=== PATIENT | male | born 1930 | race Caucasian/White ===

== ENCOUNTER 2017-06-02 20:30 | Inpatient (IN) | payer MEDICARE, OTHER ==
[~2017-06-02] VITALS: Ht 180.3 cm; Wt 107.0 kg
[~2017-06-02 20:30] MED LIST: ALPR1TAB2 PO; AMLO10TA2 PO; AMLO5TAB2 PO; ASPI-630 PO; ATOR40TA PO; BACTOBAN; CALC-52 PO; CARV6.25 PO; CETI10TA22 PO; CHOL10003 PO; CIPR500T94 PO; DOCU100T5 PO; FINA5TAB PO; FISH1CAP PO; FURO-69 PO; GLUC1TAB69 PO; GLUC1TAB71 PO; LOSA100T6 PO; METH10CA PO; MISO100T4 PO; MISO200T PO; ONDA4TAB10 SL; POLY17PO5 PO; TAMS0.4C97 PO; VIT1CAPS11 PO; ZOLP10TA PO; oscal 500
[2017-06-02] MEDS ORDERED: IPRATRPIUM/ALBUTEROL 0.5/2.5MG 3 ML NEBU. NEB ONE (21:00)
[2017-06-02 21:55] LABS: BASO % 0 % (0-3); EOS % 0 % (0-3); HEMATOCRIT 37.3 % (39.0-53.0); HEMOGLOBIN 12.5 g/dL (13.0-17.5); LYMPH # 1.8 x10^3/uL (1.0-4.8); LYMPH % 11 % (24-48); MEAN CORPUSCULAR HEMOGLOBIN 30 pg (25-35); MEAN CORPUSCULAR HGB CONC 33 g/dL (31-37); MEAN CORPUSCULAR VOLUME 91 fL (79-100); MONO # 1.1 x10^3/uL (0.0-1.1); MONO % 6 % (0-9); NEUT # 14.1 x10^3uL (1.8-7.7); NEUT % 83 % (31-73); PLATELET COUNT 160 x10^3/uL (140-400); RED BLOOD COUNT 4.11 x10^6/uL (4.30-5.70); RED CELL DISTRIBUTION WIDTH 15.3 % (11.5-14.5); WHITE BLOOD COUNT 17.1 x10^3/uL (4.0-11.0)
--- NOTE | 2017-06-02 21:55 | EKG ---
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
[2017-06-02] MEDS ORDERED: AZITHROMYCIN 500 MG VIAL. IV ONE (22:11)
[2017-06-02] MEDS ORDERED: cefTRIAXone SODIUM 1 GM VIAL IV ONE (22:11)
[2017-06-02 22:14] LABS: ALBUMIN 3.2 g/dL (3.4-5.0); ALBUMIN/GLOBULIN RATIO 0.8 (1.0-1.7); CALCIUM 8.5 mg/dL (8.5-10.1); CREATININE 2.2 mg/dL (0.7-1.3); GFR 28.6; POTASSIUM 4.2 mmol/L (3.5-5.1); TOTAL BILIRUBIN 0.8 mg/dL (0.2-1.0); TOTAL PROTEIN 7.2 g/dL (6.4-8.2)
[2017-06-02] MEDS ORDERED: ALBUTEROL SULFATE 2.5 MG/3 ML NEBU. NEB ONE (22:30)
[2017-06-02] MEDS ORDERED: AZITHROMYCIN 500 MG in IV NORMAL SALINE 250ML 250 ML IV ONE (22:30)
[2017-06-02] MEDS ORDERED: ASPIRIN 81 MG TAB.CHEW PO ONE (22:30)
[2017-06-02] MEDS ORDERED: cefTRIAXone IV Push 1 GM VIAL. IVP ONE ×2 (22:30→23:00)
[2017-06-02 22:51] LABS: % BANDS 5 % (0-9); % LYMPHS 12 % (24-48); % MONOS 10 % (0-10); % SEGS 73 % (35-66)
[2017-06-02 22:52] LABS: PLT ESTIMATE ADEQUATE (ADEQUATE)
[2017-06-02] MEDS ORDERED: NITROGLYCERIN SUBLINGUAL 0.4 MG BOTTLE OF 25. SL PRN (23:00)
[2017-06-02] MEDS ORDERED: MORPHINE SULFATE 2 MG/ML DISP.SYRIN. IV PRN (23:00)
[2017-06-02] MEDS ORDERED: ACETAMINOPHEN 325 MG TABLET PO PRN (23:00)
[2017-06-02] MEDS ORDERED: ONDANSETRON PF 4 MG/2 ML VIAL. IV PRN (23:00)
[2017-06-03] VITALS (7 sets, daily range): BP systolic 116–147; BP diastolic 49–63
[2017-06-03] MEDS ORDERED: methylPREDNISolone SOD SUCC PF 125 MG/2 ML VIAL. IV ONE (02:30)
--- NOTE | 2017-06-03 02:36 | PHYS DOC ---
Past History Past Medical History: Anxiety, Asthma, CAD, Cancer, COPD, Depression, Hypertension, Renal Disease, TIA Past Surgical History: Colectomy Alcohol Use: None Drug Use: None Adult General Chief Complaint Chief Complaint: SHORTNESS OF BREATH HPI HPI Patient is a 86 year old male who presents with cough & shortness of breath. The patient reports 2 day history of cough productive of yellow green sputum associated with shortness of breath at rest & with exertion. Reports nasal congestion. He denies fevers/chills, sore throat, chest pain, nausea, vomiting , diarrhea, dysuria. He denies history of COPD/asthma although both are documented in chart. Denies recent hospital admission. He reports history of smoking, quit 30 years ago. PCP is Dr. Geronimo. Review of Systems Review of Systems Constitutional: Denies fever or chills Eyes: Denies change in visual acuity HENT: Denies nasal congestion or sore throat Respiratory: Reports cough & shortness of breath Cardiovascular: Denies chest pain or edema GI: Denies abdominal pain, nausea, vomiting, or diarrhea Musculoskeletal: Denies back pain or joint pain Integument: Denies rash or skin lesions Neurologic: Denies headache, focal weakness or sensory changes All other systems were reviewed and found to be within normal limits, except as documented in this note. Current Medications Current Medications Current Medications Medications (Trade) Dose Ordered Sig/Gerardo Start Time Stop Time Status Last Admin Dose Admin Albuterol/ Ipratropium (Duoneb) 3 ml 1X ONCE 06/02/17 21:00 06/02/17 21:04 DC 06/02/17 22:08 3 ML Azithromycin (Zithromax) 500 mg STK-MED ONCE 06/02/17 22:11 06/02/17 22:12 DC Ceftriaxone Sodium 1 gm/ Sodium Chloride 50 ml @ 100 mls/hr 1X ONCE 06/02/17 22:15 06/02/17 22:44 UNV Ceftriaxone Sodium (Rocephin) 1 gm STK-MED ONCE 06/02/17 22:11 06/02/17 22:12 DC Allergies Allergies Allergies Coded Allergies Type Severity Reaction Last Updated Verified codeine Allergy Intermediate 12/27/13 Yes Physical Exam Physical Exam Constitutional: obese, no acute distress, non-toxic appearance. HENT: Normocephalic, atraumatic, bilateral external ears normal, oropharynx moist, no tonsillar enlargement/exudate, nose normal. Eyes: conjunctiva normal, no discharge. Neck: supple, no stridor. Cardiovascular: RRR, no murmurs, no edema. Lungs & Thorax: expiratory wheezes bilaterally greater on the left, no retractions or accessory muscle use, no respiratory distress. Abdomen: soft, nontender, nondistended. Skin: Warm, dry, no erythema, no rash. Back: No tenderness. Extremities: No tenderness, no edema. no calf tenderness or swelling. Neurologic: Alert and oriented X 3, no focal deficits noted. Psychologic: Affect normal, judgement normal, mood normal. Current Patient Data Vital Signs Vital Signs Date Time Temp Pulse Resp B/P (MAP) Pulse Ox O2 Delivery O2 Flow Rate FiO2 06/03/17 01:00 Room Air 06/03/17 01:00 98.8 67 26 144/53 (83) 91 Lab Results Laboratory Tests Test 06/02/17 21:24 White Blood Count 17.1 x10^3/uL (4.0-11.0) H Red Blood Count 4.11 x10^6/uL (4.30-5.70) L Hemoglobin 12.5 g/dL (13.0-17.5) L Hematocrit 37.3 % (39.0-53.0) L Mean Corpuscular Volume 91 fL (79-100) Mean Corpuscular Hemoglobin 30 pg (25-35) Mean Corpuscular Hemoglobin Concent 33 g/dL (31-37) Red Cell Distribution Width 15.3 % (11.5-14.5) H Platelet Count 160 x10^3/uL (140-400) Neutrophils (%) (Auto) 83 % (31-73) H Lymphocytes (%) (Auto) 11 % (24-48) L Monocytes (%) (Auto) 6 % (0-9) Eosinophils (%) (Auto) 0 % (0-3) Basophils (%) (Auto) 0 % (0-3) Neutrophils # (Auto) 14.1 x10^3uL (1.8-7.7) H Lymphocytes # (Auto) 1.8 x10^3/uL (1.0-4.8) Monocytes # (Auto) 1.1 x10^3/uL (0.0-1.1) Eosinophils # (Auto) 0.0 x10^3/uL (0.0-0.7) Basophils # (Auto) 0.0 x10^3/uL (0.0-0.2) Segmented Neutrophils % 73 % (35-66) H Band Neutrophils % 5 % (0-9) Lymphocytes % 12 % (24-48) L Monocytes % 10 % (0-10) Platelet Estimate Adequate (ADEQUATE) Sodium Level 140 mmol/L (136-145) Potassium Level 4.2 mmol/L (3.5-5.1) Chloride Level 105 mmol/L (98-107) Carbon Dioxide Level 27 mmol/L (21-32) Anion Gap 8 (6-14) Blood Urea Nitrogen 31 mg/dL (8-26) H Creatinine 2.2 mg/dL (0.7-1.3) H Estimated GFR (Cockcroft-Gault) 28.6 BUN/Creatinine Ratio 14 (6-20) Glucose Level 141 mg/dL (70-99) H Calcium Level 8.5 mg/dL (8.5-10.1) Total Bilirubin 0.8 mg/dL (0.2-1.0) Aspartate Amino Transferase (AST) 19 U/L (15-37) Alanine Aminotransferase (ALT) 22 U/L (16-63) Alkaline Phosphatase 64 U/L (46-116) Troponin I Quantitative 0.107 ng/mL (0-0.055) H HJ-Nfg-V-Type Natriuretic Peptide 2214 pg/mL (0-449) H Total Protein 7.2 g/dL (6.4-8.2) Albumin 3.2 g/dL (3.4-5.0) L Albumin/Globulin Ratio 0.8 (1.0-1.7) L EKG EKG interpreted by me: normal sinus rhythm rate 73, RBBB, T waves inverted in V1- V3 without ST depression appears stable from previous EKG, normal intervals, no ectopy.[] Radiology/Procedures Radiology/Procedures CXR, 2 view: interpreted by me: right sided infiltrate, cardiomegaly, no pneumothorax.[] Course & Med Decision Making Course & Med Decision Making Pertinent Labs and Imaging studies reviewed. (See chart for details) The patient presents with cough & shortness of breath. Afebrile, desats to high 80s at times on room air but overall stable >90%. He was wheezing on arrival. Gave duoneb & albuterol treatments. He denied history of COPD or asthma, but as I am reviewing his chart after admission, he does have documented history, steroids not given earlier but will order now despite the fact that he was admitted several hours ago. He had CXR showing pulmonary infiltrate. Gave rocephin & azithromycin for community acquired pneumonia. Does not meet criteria for sepsis. EKG appears unchanged from previous, troponin & BNP elevated. Will give aspirin here & obtain repeat troponin. Recommend admission for ongoing respiratory management, cardiac workup. Patient agrees with plan of care. Discussed with Dr. Geronimo who agrees to admit to inpatient status. The patient is admitted in stable condition. [] Dragon Disclaimer Dragon Disclaimer This electronic medical record was generated, in whole or in part, using a voice recognition dictation system. Departure Departure: Impression: Primary Impression: Community acquired pneumonia Disposition: ADMITTED INPATIENT Admitting Physician: See Geronimo Condition: STABLE JOE RASHEED MD Jun 03, 2017 02:36
[2017-06-03 04:13] LABS: BASO % 0 % (0-3); EOS % 0 % (0-3); HEMATOCRIT 36.6 % (39.0-53.0); LYMPH # 1.5 x10^3/uL (1.0-4.8); LYMPH % 10 % (24-48); MEAN CORPUSCULAR HEMOGLOBIN 30 pg (25-35); MEAN CORPUSCULAR HGB CONC 33 g/dL (31-37); MEAN CORPUSCULAR VOLUME 92 fL (79-100); MONO # 0.6 x10^3/uL (0.0-1.1); MONO % 5 % (0-9); NEUT # 11.9 x10^3uL (1.8-7.7); NEUT % 85 % (31-73); PLATELET COUNT 144 x10^3/uL (140-400); RED CELL DISTRIBUTION WIDTH 15.5 % (11.5-14.5)
[2017-06-03 04:28] LABS: CALCIUM 8.3 mg/dL (8.5-10.1); GFR 31.9; POTASSIUM 3.9 mmol/L (3.5-5.1)
[2017-06-03] MEDS ORDERED: IPRATRPIUM/ALBUTEROL 0.5/2.5MG 3 ML NEBU. ONE (05:11)
[2017-06-03] MEDS: IPRATRPIUM/ALBUTEROL 0.5/2.5MG 3 ML NEBU. NEB SCH ×4 (05:55→21:27)
--- NOTE | 2017-06-03 07:52 | RAD ---
2 view CXR: Clinical indications: Cough and shortness of breath. History of hypertension. Comparison: July 27, 2016. Findings: Chronic peribronchial thickening is seen consistent with chronic bronchitis. There is an increase in peribronchial thickening within the left midlung zone since the previous study consistent with acute bronchitis. No new consolidative infiltrate is seen. No pleural effusion or pneumothorax is evident. Heart size mildly enlarged. The mediastinum and pulmonary vasculature are unremarkable. The osseous structures appear intact. Impression: Chronic bronchitis. Acute bronchitis of the left midlung zone. No new consolidative pneumonia. Mild cardiomegaly.
[2017-06-03] MEDS ORDERED: CARVEDILOL 6.25 MG TABLET PO SCH (09:00)
[2017-06-03] MEDS ORDERED: FUROSEMIDE 20 MG TABLET PO SCH (09:30)
[2017-06-03] MEDS ORDERED: LOSARTAN 50 MG TABLET. PO SCH (09:30)
[2017-06-03] MEDS ORDERED: ALPRAZolam 0.5 MG TABLET PO PRN (09:30)
[2017-06-03] MEDS: CHOLECALCIFEROL (VITAMIN D3) 1,000 UNIT TABLET PO SCH (09:35)
[2017-06-03] MEDS: ASPIRIN 81 MG TAB.CHEW PO SCH (09:35)
[2017-06-03] MEDS: DOXYCYCLINE HYCLATE 100 MG TABLET PO SCH ×2 (09:36→21:25)
[2017-06-03] MEDS ORDERED: amLODIPine BESYLATE 10 MG TABLET PO SCH (10:00)
--- NOTE | 2017-06-03 10:17 | PDOC2 ---
CONSULT Date of Admission DATE: 06/03/17 TIME: 09:45 Reason for Consult: elevated trop Problem List Problems Medical Problems: (1) Community acquired pneumonia Status: Acute History of Present Illness Mr Walter is an 86 year old male who presents to the hospital with several days of productive cough, wheezing, chills and general malaise. He reports exposure to a sick relative over [place]. He denies chest discomfort, dyspnea or congestive symptoms. He denies palpitations. He does report some lightheadedness on standing. He reports his functional capacity at 10 minutes on the treadmill at least daily before hip pain. He denies any recent change in this capacity. He reports his biggest complaint at this time is constipation. Past Medical History hypertension, CAD s/p PCI/stent in [id number] at . Colon cancer diagnosed 2009, hyperlipidemia, anxiety, erectile dysfunction, obesity, COPD, near-syncope , depression, hypogonadism, BPH, asthma, secondary hyperparathyroidism, proteinuria, arteriolar nephrosclerosis, cardiomyopathy, obstructive sleep apnea , diplopia, type 2 diabetes, testosterone deficiency, cardiomegaly, TIA, chronic kidney disease stage III follows with Dr. Matthew Past Surgical History hand surgery, cataract surgery, hemorrhoidectomy, septoplasty, appendectomy, bowel resection, sigmoidectomy Family History non contributory due to age Social History Remote tobaccoism, quit 30 yrs, no significant ETOH, no illicit drugs Current Medications Current Medications Albuterol/ Ipratropium (Duoneb) 3 ml 1X ONCE NEB Last administered on 22:08; Start 06/02/17 at 21:00; Stop 06/02/17 at 21:04; Status DC Ceftriaxone Sodium 1 gm/ Sodium Chloride 50 ml @ 100 mls/hr 1X ONCE IV ; Start 06/02/17 at 22:15; Stop 06/02/17 at 22:44; Status UNV Azithromycin 500 mg/Sodium Chloride 250 ml @ 250 mls/hr 1X ONCE IV Last administered on 06/02/17 22:28; Start 06/02/17 at 22:30; Stop 06/02/17 at 23 :29; Status DC Azithromycin (Zithromax) 500 mg STK-MED ONCE IV ; Start 06/02/17 at 22:11; Stop 06/02/17 at 22:12; Status DC Ceftriaxone Sodium (Rocephin) 1 gm STK-MED ONCE IV ; Start 06/02/17 at 22:11; Stop 06/02/17 at 22:12; Status DC Ceftriaxone Sodium (Rocephin) 1 gm 1X ONCE IVP Last administered on 22:30; Start 06/02/17 at 22:30; Stop 06/02/17 at 22:31; Status DC Albuterol Sulfate (Ventolin) 5 mg 1X ONCE NEB Last administered on 06/02/17 22:28; Start 06/02/17 at 22:30; Stop 06/02/17 at 22:31; Status DC Aspirin (Children'S Aspirin) 324 mg 1X ONCE PO Last administered on 22:35; Start 06/02/17 at 22:30; Stop 06/02/17 at 22:31; Status DC Ceftriaxone Sodium (Rocephin) 1 gm 1X ONCE IVP ; Start 06/02/17 at 23:00; Stop 06/02/17 at 23:01; Status DC Ondansetron HCl (Zofran) 4 mg PRN Q4HRS PRN IV NAUSEA/VOMITING; Start at 23:00; Stop 06/03/17 at 22:59 Morphine Sulfate (Morphine 2mg Syringe) 2 mg PRN Q2HR PRN IV PAIN; Start 06/02 at 23:00; Stop 06/03/17 at 22:59 Acetaminophen (Tylenol) 650 mg PRN Q4HRS PRN PO FEVER; Start 06/02/17 at 23:00 ; Stop 06/03/17 at 22:59 Nitroglycerin (Nitrostat) 0.4 mg PRN Q5MIN PRN SL CHEST PAIN; Start 06/02/17 at 23:00; Stop 06/03/17 at 22:59 Albuterol/ Ipratropium (Duoneb) 3 ml RTQID NEB Last administered on 06/03/17 05:55; Start 06/03/17 at 08:00; Stop 06/04/17 at 07:59 Methylprednisolone Sodium Succinate (SOLU-Medrol 125MG VIAL) 125 mg 1X ONCE IV Last administered on 06/03/17 02:45; Start 06/03/17 at 02:30; Stop at 02:32; Status DC Albuterol/ Ipratropium (Duoneb) 3 ml STK-MED ONCE .ROUTE ; Start 06/03/17 at 05 :11; Stop 06/03/17 at 05:12; Status DC Amlodipine Besylate (Norvasc) 10 mg BIDWMEALS PO ; Start 06/03/17 at 17:00; Status UNV Aspirin (Children'S Aspirin) 81 mg DAILY08 PO Last administered on 06/03/17 09:35; Start 06/03/17 at 09:15 Carvedilol (Coreg) 6.25 mg BID PO ; Start 06/03/17 at 09:00 Cetirizine HCl (ZyrTEC) 10 mg BID PO ; Start 06/03/17 at 09:00; Status UNV Vitamin D (Vitamin D3) 2,000 unit DAILY PO Last administered on 06/03/17 09: 35; Start 06/03/17 at 09:00 Furosemide (Lasix) 20 mg DAILY PO ; Start 06/03/17 at 09:30 Misoprostol (Cytotec) 100 mcg TID PO ; Start 06/03/17 at 09:30 Ondansetron HCl (Zofran Odt) 4 mg Q8HRS PO ; Start 06/03/17 at 14:00 Alprazolam (Xanax) 1 mg PRN TID PRN PO ANXIETY / AGITATION; Start 06/03/17 at 09:30 Atorvastatin Calcium (Lipitor) 40 mg QHS PO ; Start 06/03/17 at 21:00 Losartan Potassium (Cozaar) 100 mg DAILY PO ; Start 06/03/17 at 09:30 Multivitamins/ Minerals (I-Jose F) 1 tab DAILYWLUN PO ; Start 06/04/17 at 12:00 Ceftriaxone Sodium 1 gm/ Sodium Chloride 50 ml @ 100 mls/hr Q24H IV ; Start at 09:00 Doxycycline Hyclate (Vibra-Tab) 100 mg BID PO Last administered on 06/03/17 09:36; Start 06/03/17 at 09:15 Active Scripts Active Zofran Odt (Ondansetron) 4 Mg Tab.rapdis 1 Tab SL Q8HRS Reported Losartan Potassium 100 Mg Tablet 100 Mg PO DAILY Amlodipine Besylate 10 Mg Tablet 10 Mg PO BIDWMEALS Osteo Bi-Flex Caplet (Glucosamine Hcl/Chondr Elizabeth A Na) 1 Each Tablet 1 Each PO BIDWMEALS Vitamin D3 (Cholecalciferol (Vitamin D3)) 1,000 Unit Tablet 2,000 Unit PO DAILY Misoprostol 100 Mcg Tablet 100 Mcg PO TID Coreg (Carvedilol) 6.25 Mg Tablet 6.25 Mg PO BID Lasix (Furosemide) 20 Mg Tablet 20 Mg PO DAILY Zyrtec (Cetirizine Hcl) 10 Mg Tablet 10 Mg PO BID Xanax (Alprazolam) 1 Mg Tablet 1 Mg PO TID PRN Ocuvite Softgel (Vit C/Vit E/Lutein/Min/[place]-3) 1 Each Capsule 1 Each PO DAILYWLUN Fish Oil 1,200 Mg Fish Oil (Fish Oil/Dha/Epa) 1 Each Capsule 1 Each PO BIDWMEALS Lipitor (Atorvastatin Calcium) 40 Mg Tablet 40 Mg PO QHS Aspirin 81 Mg Tab.chew 81 Mg PO DAILY08 Allergies: Coded Allergies: codeine (Verified Allergy, Intermediate, 12/27/13) "Makes me feel like I am falling" Review of System 14 pt ROS as per HPI, below or neg General: YES: Chills, Malaise HEENT: YES: Nasal congestion Respiratory: YES: Cough, Sputum Changes, Wheezing Cardiovascular: yes: Lt Headedness Gastrointestinal: YES: Constipation Musculoskeletal: YES: Joint Pain General: Alert, Oriented X3, Cooperative, No acute distress HEENT: Atraumatic, EOMI Lungs: Clear to auscultation, Normal air movement Heart: Regular rate, Normal S1, Normal S2, Other (no significant murmurs, no clicks or rubs, no gallops) Abdomen: Normal bowel sounds, Soft, Other (obese, non tender) Extremities: No cyanosis, No edema, Normal pulses Skin: No rashes, No breakdown Neuro: Normal speech, Strength at 5/5 X4 ext, Cranial nerves 3-12 NL Psych/Mental Status: Mental status NL, Mood NL VITALS Vital Signs Date Time Temp Pulse Resp B/P (MAP) Pulse Ox O2 Delivery O2 Flow Rate FiO2 06/03/17 06:29 98.7 06/03/17 05:20 94 Room Air 06/03/17 05:17 72 20 147/49 (81) Labs Laboratory Tests Test 06/02/17 21:24 06/03/17 04:00 06/03/17 05:52 White Blood Count 17.1 x10^3/uL (4.0-11.0) 14.0 x10^3/uL (4.0-11.0) Red Blood Count 4.11 x10^6/uL (4.30-5.70) 4.00 x10^6/uL (4.30-5.70) Hemoglobin 12.5 g/dL (13.0-17.5) 12.0 g/dL (13.0-17.5) Hematocrit 37.3 % (39.0-53.0) 36.6 % (39.0-53.0) Mean Corpuscular Volume 91 fL (79-100) 92 fL (79-100) Mean Corpuscular Hemoglobin 30 pg (25-35) 30 pg (25-35) Mean Corpuscular Hemoglobin Concent 33 g/dL (31-37) 33 g/dL (31-37) Red Cell Distribution Width 15.3 % (11.5-14.5) 15.5 % (11.5-14.5) Platelet Count 160 x10^3/uL (140-400) 144 x10^3/uL (140-400) Neutrophils (%) (Auto) 83 % (31-73) 85 % (31-73) Lymphocytes (%) (Auto) 11 % (24-48) 10 % (24-48) Monocytes (%) (Auto) 6 % (0-9) 5 % (0-9) Eosinophils (%) (Auto) 0 % (0-3) 0 % (0-3) Basophils (%) (Auto) 0 % (0-3) 0 % (0-3) Neutrophils # (Auto) 14.1 x10^3uL (1.8-7.7) 11.9 x10^3uL (1.8-7.7) Lymphocytes # (Auto) 1.8 x10^3/uL (1.0-4.8) 1.5 x10^3/uL (1.0-4.8) Monocytes # (Auto) 1.1 x10^3/uL (0.0-1.1) 0.6 x10^3/uL (0.0-1.1) Eosinophils # (Auto) 0.0 x10^3/uL (0.0-0.7) 0.0 x10^3/uL (0.0-0.7) Basophils # (Auto) 0.0 x10^3/uL (0.0-0.2) 0.0 x10^3/uL (0.0-0.2) Segmented Neutrophils % 73 % (35-66) Band Neutrophils % 5 % (0-9) Lymphocytes % 12 % (24-48) Monocytes % 10 % (0-10) Platelet Estimate Adequate (ADEQUATE) Sodium Level 140 mmol/L (136-145) 139 mmol/L (136-145) Potassium Level 4.2 mmol/L (3.5-5.1) 3.9 mmol/L (3.5-5.1) Chloride Level 105 mmol/L (98-107) 106 mmol/L (98-107) Carbon Dioxide Level 27 mmol/L (21-32) 25 mmol/L (21-32) Anion Gap 8 (6-14) 8 (6-14) Blood Urea Nitrogen 31 mg/dL (8-26) 32 mg/dL (8-26) Creatinine 2.2 mg/dL (0.7-1.3) 2.0 mg/dL (0.7-1.3) Estimated GFR (Cockcroft-Gault) 28.6 31.9 BUN/Creatinine Ratio 14 (6-20) Glucose Level 141 mg/dL (70-99) 140 mg/dL (70-99) Calcium Level 8.5 mg/dL (8.5-10.1) 8.3 mg/dL (8.5-10.1) Total Bilirubin 0.8 mg/dL (0.2-1.0) Aspartate Amino Transf (AST/SGOT) 19 U/L (15-37) Alanine Aminotransferase (ALT/SGPT) 22 U/L (16-63) Alkaline Phosphatase 64 U/L (46-116) Troponin I Quantitative 0.107 ng/mL (0-0.055) 0.115 ng/mL (0-0.055) RK-Uua-Q-Type Natriuretic Peptide 2214 pg/mL (0-449) Total Protein 7.2 g/dL (6.4-8.2) Albumin 3.2 g/dL (3.4-5.0) Albumin/Globulin Ratio 0.8 (1.0-1.7) Lactic Acid Level 1.4 mmol/L (0.4-2.0) Images CXR - Impression: Chronic bronchitis. Acute bronchitis of the left midlung zone. No new consolidative pneumonia. Mild cardiomegaly. EKG - Sinus rhythm, 1st degree AVB, RBBB, LAFB, non specific abn. Assessment/Plan 1. elevated troponin c/w NSTEMI, likely demand related 2. CAD with prior PCI/Stent 3. hypertension - resume home meds at reduced doses for now and titrate up as needed. 4. CKD - holding lasix as he normally takes PRN and I suspect he is a little on the dry side. 5. hyperlipidemia - check lipids. 6. diabetes mellitus - per PCP Will resume home medications. Change Coreg to metoprolol for now due to frequent wheezing. Check echo for LV function and request records from [facility]. Continue aspirin, statin, beta jaz and suggest Ischemic evaluation when acute bronchitis resolved. Problems: DARRICK ROSAS ULTRASONOGRAPHER Jun 03, 2017 10:17
[2017-06-03] MEDS ORDERED: BISACODYL 10 MG SUPP.RECT PR ONE (10:30)
[2017-06-03] MEDS: miSOPROStol 100 MCG TABLET PO SCH ×3 (10:44→21:25)
[2017-06-03] MEDS: METOPROLOL TART IMMED RELEASE 25 MG TABLET PO SCH ×2 (11:11→21:26)
[2017-06-03] MEDS: CETIRIZINE HCL 10 MG TABLET PO SCH ×2 (11:19→21:25)
[2017-06-03] MEDS: ONDANSETRON ODT 4 MG TAB.RAPDIS PO SCH ×2 (15:10→21:25)
--- NOTE | 2017-06-03 16:17 | CARD ---
MR#: [id number] Date of Study: 06/03/2017 Ordering Physician: DARRICK ROSAS, Referring Physician: WILLIAM SEVERINO, Tech: Floresita Yeboah [facility] APPROVED REPORT EXAM: Two-dimensional and M-mode echocardiogram with Doppler and color Doppler. Other Information Quality : Average INDICATION Dyspnea 2D DIMENSIONS Left Atrium(2D)4.7 (1.6-4.0cm)IVSd1.5 (0.7-1.1cm) Aortic Root(2D)3.0 (2.0-3.7cm)LVDd5.3 (3.9-5.9cm) LVOT Diameter2.0 (1.8-2.4cm)PWd1.4 (0.7-1.1cm) LVDs3.5 (2.5-4.0cm)FS (%) 33.5 % SV82.7 mlLVEF(%)61.8 (>50%) Aortic Valve AoV Peak Waldemar.203.5cm/sAoV VTI46.8cm AO Peak GR.16.6mmHgLVOT Peak Waldemar.146.3cm/s LVOT VTI 33.63cmAO Mean GR.9mmHg QUENTIN (VMAX)2.65bu5IDT (VTI)2.30cm2 Mitral Valve MV E Hebjoogg475.8cm/sMV DECEL PWOJ419dm MV A Guuzhnji516.8cm/sE/A Ratio0.9 Tricuspid Valve TR P. Yjaeyrvt928xy/sRAP MOFSANTS6xzHo TR Peak Gr.40xaShBEVE03naDt LEFT VENTRICLE The left ventricle is normal size. There is mild concentric left ventricular hypertrophy. Left ventri loco systolic function is normal. The Ejection Fraction is 55-60%. There is normal LV segmental wall m otion. Transmitral Doppler flow pattern is normal for age. Transmitral Doppler flow pattern is Grade I-abnormal relaxation pattern. RIGHT VENTRICLE The right ventricle is normal size. The right ventricular systolic function is normal. ATRIA The left atrium is mildly dilated. The right atrium size is normal. Mobile interatrial septum noted. AORTIC VALVE The aortic valve is calcified but opens well. Doppler and Color Flow revealed no significant aortic r egurgitation. There is no significant aortic valvular stenosis. MITRAL VALVE The mitral valve is mildly thickened. There is no evidence of mitral valve prolapse. There is no mitr al valve stenosis. Doppler and Color-flow revealed mild mitral regurgitation. TRICUSPID VALVE The tricuspid valve is normal in structure. Doppler and Color Flow revealed mild tricuspid regurgitat ion. The PA pressure was estimated at 21 mmHg. There is no tricuspid valve prolapse or vegetation. Th ere is no tricuspid valve stenosis. PULMONIC VALVE The pulmonic valve is borderline thickened. Doppler and Color Flow revealed trace to mild pulmonic va lvular regurgitation. There is no pulmonic valvular stenosis. GREAT VESSELS The aortic root is normal in size. The ascending aorta is normal in size. The IVC is normal in size a nd collapses >50% with inspiration. PERICARDIAL EFFUSION There is no pleural effusion. There is no evidence of significant pericardial effusion. Critical Notification Critical Value: No <Conclusion> The left ventricle is normal size. Left ventricle systolic function is normal. The Ejection Fraction is 55-60%. There is mild concentric left ventricular hypertrophy. There is no significant aortic valvular stenosis. Doppler and Color Flow revealed no significant aortic regurgitation. Doppler and Color-flow revealed mild mitral regurgitation. Doppler and Color Flow revealed mild tricuspid regurgitation. The PA pressure was estimated at 21 mmHg. Signed by : Dereje Eduardo MD Electronically Approved : 06/03/2017 16:17:23
[2017-06-03] MEDS: ATORVASTATIN CALCIUM 20 MG TABLET PO SCH (21:25)
--- NOTE | 2017-06-04 00:05 | HP ---
ADMIT DATE: 06/03/2017 HISTORY OF PRESENT ILLNESS: An 86-year-old male came in through the Emergency Room. The patient was having problems with increased shortness of breath for 3 days, episode of bringing up yellow-green phlegm with exertion. The patient reports severe nasal congestion. He denies ____ nausea, vomiting; however, because of increasing shortness of breath, the patient was admitted to the hospital for further evaluation and treatment thereof. PAST MEDICAL HISTORY: Includes that of HEENT disorders in terms of deaf in left ear. He has had TIAs, coronary stent placement, hypercholesterolemia, respiratory disorders, COPD, sleep apnea on CPAP, abdominal pain, appendectomy, colon resection, obesity, reproductive disorders like impotence, low testosterone levels, benign prostatic hyperplasia, urinary urgency, degenerative arthritis. The patient has had some problems with depression. Otherwise, he has also had some skin cancer. The patient's, otherwise, immunizations are up to date. PAST SURGICAL HISTORY: Include bilateral blepharoplasty. ALLERGIES: The patient has an allergy to CODEINE. MEDICATIONS: Xanax 1 mg t.i.d., Norvasc 10 mg b.i.d., aspirin 81, Lipitor 40, carvedilol 6.25 b.i.d., Zyrtec 10 mg b.i.d., furosemide 20 mg daily, glucosamine 1 tablet b.i.d., losartan 100 mg daily, misoprostol 100 mcg daily, Zofran ODT, vitamin C, E, and lutein. FAMILY HISTORY: Noncontributory. SOCIAL HISTORY: The patient denies smoking, alcohol or drug use. REVIEW OF SYSTEMS: The patient denies any headaches, visual changes, blurred vision, double vision. Denies any melena, hematochezia, hematemesis. Neurologically intact. PHYSICAL EXAMINATION: GENERAL: This is a pleasant white male in mild respiratory distress. VITAL SIGNS: The patient in turn has blood pressure 140/60, respiratory rate 18, pulse 102, temperature as high as 100.5, oxygen saturation 91% on room air. HEENT: The patient's head was atraumatic, normocephalic. Eyes: PERRLA without jaundice. Mouth and throat were normal. NECK: Supple, without JVD, carotid bruits or thyromegaly. LUNGS: The patient's lungs were diminished throughout, poor movement of air, some expiratory wheezes. CARDIOVASCULAR: Regular sinus rhythm, S1, S2, without murmur, rub, thrill, or extra heart sounds. ABDOMEN: Soft, nontender, no rebound or guarding. Positive bowel sounds. No hepatosplenomegaly was noted. EXTREMITIES: No clubbing, cyanosis, or edema. NEUROLOGIC: Intact. LABORATORY DATA: White count was over 17,000. The patient has fairly normal differential. The patient's creatinine elevated at 2. BNP elevated to 2200. Lactic acid was normal, although he did have elevated troponin of 0.068. Cardiology was consulted on this issue at hand. The patient's, otherwise, chest x-ray showed indications of bronchitis. At level of his fever, it was felt that it was more than just bronchitis. IMPRESSION: The patient in turn has acute exacerbation of chronic obstructive pulmonary disease, acute bronchitis, first degree AV block, right bundle branch block, elevated troponin levels, chronic kidney disease stage III. PLAN: The patient will be admitted for further evaluation and treatment. Make further assessment on him as indicated along with Cardiology evaluating the troponin as well. WILLIAM SEVERINO MD DR: JORGITO/dalia JOB#: [id number] / [id number]
[2017-06-04 03:00] VITALS: BP 138/63
[2017-06-04] MEDS: IPRATRPIUM/ALBUTEROL 0.5/2.5MG 3 ML NEBU. NEB SCH ×4 (06:00→20:15)
[2017-06-04] MEDS: ONDANSETRON ODT 4 MG TAB.RAPDIS PO SCH ×3 (06:30→20:28)
[2017-06-04 07:51] LABS: BASO % 0 % (0-3); EOS % 0 % (0-3); HEMATOCRIT 37.2 % (39.0-53.0); HEMOGLOBIN 12.5 g/dL (13.0-17.5); LYMPH # 1.5 x10^3/uL (1.0-4.8); LYMPH % 8 % (24-48); MEAN CORPUSCULAR HEMOGLOBIN 31 pg (25-35); MEAN CORPUSCULAR HGB CONC 34 g/dL (31-37); MEAN CORPUSCULAR VOLUME 91 fL (79-100); MONO # 0.8 x10^3/uL (0.0-1.1); MONO % 5 % (0-9); NEUT # 15.7 x10^3uL (1.8-7.7); NEUT % 87 % (31-73); PLATELET COUNT 175 x10^3/uL (140-400); RED CELL DISTRIBUTION WIDTH 15.3 % (11.5-14.5); WHITE BLOOD COUNT 18.1 x10^3/uL (4.0-11.0)
[2017-06-04 08:02] LABS: CALCIUM 8.4 mg/dL (8.5-10.1); CREATININE 2.1 mg/dL (0.7-1.3); GFR 30.2; POTASSIUM 4.4 mmol/L (3.5-5.1)
[2017-06-04] MEDS: LACTOBACILLUS RHAMNOSUS GG 1 CAPSULE. PO SCH ×2 (08:11→20:26)
[2017-06-04] MEDS: ASPIRIN 81 MG TAB.CHEW PO SCH (08:11)
[2017-06-04] MEDS: CHOLECALCIFEROL (VITAMIN D3) 1,000 UNIT TABLET PO SCH (08:11)
[2017-06-04] MEDS: amLODIPine BESYLATE 10 MG TABLET PO SCH (08:13)
[2017-06-04] MEDS: METOPROLOL TART IMMED RELEASE 25 MG TABLET PO SCH ×2 (08:14→20:29)
[2017-06-04] MEDS: LOSARTAN 50 MG TABLET. PO SCH (08:17)
[2017-06-04] MEDS: miSOPROStol 100 MCG TABLET PO SCH ×3 (08:17→20:27)
[2017-06-04] MEDS: DOXYCYCLINE HYCLATE 100 MG TABLET PO SCH ×2 (08:17→20:27)
[2017-06-04] MEDS: CETIRIZINE HCL 10 MG TABLET PO SCH ×2 (08:18→20:27)
[2017-06-04 09:17] VITALS: BP 122/59
--- NOTE | 2017-06-04 09:34 | PDOC ---
DARRICK ROSAS AGRISCIENCE TECHNOLOGY INSTRUCTOR 06/04/17 0934: PROGRESS NOTES Diagnosis Problem Problems Medical Problems: (1) Community acquired pneumonia Status: Acute Assessment Problems Medical Problems: (1) Community acquired pneumonia Status: Acute 1. elevated troponin c/w NSTEMI, likely demand related - trop peak at 0.115. LVEF and wall motion normal by echo. Continue aspirin, beta jaz, statin therapy. Recommend outpatient MPI once acute respiratory issues resolved. 2. COPD exacerbation/acute bronchitis - mgmt per PCP 3. CAD with prior PCI/Stent 2010 - records requested from [facility] 4. hypertension - anti hypertensives adjusted yesterday, blood pressure controlled. 5. CKD - holding lasix as he normally takes PRN and I suspect he is a little on the dry side. Cr holding stable. 6. hyperlipidemia - lipids pending, continue statin therapy. 7. diabetes mellitus - per PCP Problems: Subjective feeling better today, no chest pain, denies dyspnea, no palpitations Objective Echo The left ventricle is normal size. Left ventricle systolic function is normal. The Ejection Fraction is 55-60%. There is mild concentric left ventricular hypertrophy. There is no significant aortic valvular stenosis. Doppler and Color Flow revealed no significant aortic regurgitation. Doppler and Color-flow revealed mild mitral regurgitation. Doppler and Color Flow revealed mild tricuspid regurgitation. The PA pressure was estimated at 21 mmHg. Vital Signs Date Time Temp Pulse Resp B/P (MAP) Pulse Ox O2 Delivery O2 Flow Rate FiO2 06/04/17 09:17 59 122/59 (80) 06/04/17 05:30 96 Room Air 06/04/17 03:00 97.9 18 Intake and Output 06/04/17 07:00 Intake Total 2550 ml Balance 2550 ml Intake Oral 2400 ml IV Total 150 ml # Voids 5 # Bowel Movements 1 Abdomen: Normal bowel sounds, Soft, No tenderness, Other (obese) Heart: Regular rate, Normal S1, Normal S2, Other (no gallops, clicks or rubs) Extremities: No cyanosis, Normal pulses General: Alert, Oriented X3, Cooperative, No acute distress Lungs: Other (scattered wheezing bilaterally) Neuro: Normal speech, Strength at 5/5 X4 ext Psych/Mental Status: Mental status NL, Mood NL Review of Relevant I have reviewed the following items dina (where applicable) has been applied. Labs Laboratory Tests Test 06/02/17 21:24 06/03/17 01:30 06/03/17 04:00 06/03/17 05:52 White Blood Count 17.1 x10^3/uL (4.0-11.0) 14.0 x10^3/uL (4.0-11.0) Red Blood Count 4.11 x10^6/uL (4.30-5.70) 4.00 x10^6/uL (4.30-5.70) Hemoglobin 12.5 g/dL (13.0-17.5) 12.0 g/dL (13.0-17.5) Hematocrit 37.3 % (39.0-53.0) 36.6 % (39.0-53.0) Mean Corpuscular Volume 91 fL (79-100) 92 fL (79-100) Mean Corpuscular Hemoglobin 30 pg (25-35) 30 pg (25-35) Mean Corpuscular Hemoglobin Concent 33 g/dL (31-37) 33 g/dL (31-37) Red Cell Distribution Width 15.3 % (11.5-14.5) 15.5 % (11.5-14.5) Platelet Count 160 x10^3/uL (140-400) 144 x10^3/uL (140-400) Neutrophils (%) (Auto) 83 % (31-73) 85 % (31-73) Lymphocytes (%) (Auto) 11 % (24-48) 10 % (24-48) Monocytes (%) (Auto) 6 % (0-9) 5 % (0-9) Eosinophils (%) (Auto) 0 % (0-3) 0 % (0-3) Basophils (%) (Auto) 0 % (0-3) 0 % (0-3) Neutrophils # (Auto) 14.1 x10^3uL (1.8-7.7) 11.9 x10^3uL (1.8-7.7) Lymphocytes # (Auto) 1.8 x10^3/uL (1.0-4.8) 1.5 x10^3/uL (1.0-4.8) Monocytes # (Auto) 1.1 x10^3/uL (0.0-1.1) 0.6 x10^3/uL (0.0-1.1) Eosinophils # (Auto) 0.0 x10^3/uL (0.0-0.7) 0.0 x10^3/uL (0.0-0.7) Basophils # (Auto) 0.0 x10^3/uL (0.0-0.2) 0.0 x10^3/uL (0.0-0.2) Segmented Neutrophils % 73 % (35-66) Band Neutrophils % 5 % (0-9) Lymphocytes % 12 % (24-48) Monocytes % 10 % (0-10) Platelet Estimate Adequate (ADEQUATE) Sodium Level 140 mmol/L (136-145) 139 mmol/L (136-145) Potassium Level 4.2 mmol/L (3.5-5.1) 3.9 mmol/L (3.5-5.1) Chloride Level 105 mmol/L (98-107) 106 mmol/L (98-107) Carbon Dioxide Level 27 mmol/L (21-32) 25 mmol/L (21-32) Anion Gap 8 (6-14) 8 (6-14) Blood Urea Nitrogen 31 mg/dL (8-26) 32 mg/dL (8-26) Creatinine 2.2 mg/dL (0.7-1.3) 2.0 mg/dL (0.7-1.3) Estimated GFR (Cockcroft-Gault) 28.6 31.9 BUN/Creatinine Ratio 14 (6-20) Glucose Level 141 mg/dL (70-99) 140 mg/dL (70-99) Calcium Level 8.5 mg/dL (8.5-10.1) 8.3 mg/dL (8.5-10.1) Total Bilirubin 0.8 mg/dL (0.2-1.0) Aspartate Amino Transf (AST/SGOT) 19 U/L (15-37) Alanine Aminotransferase (ALT/SGPT) 22 U/L (16-63) Alkaline Phosphatase 64 U/L (46-116) Troponin I Quantitative 0.107 ng/mL (0-0.055) 0.115 ng/mL (0-0.055) ZX-Jvp-C-Type Natriuretic Peptide 2214 pg/mL (0-449) Total Protein 7.2 g/dL (6.4-8.2) Albumin 3.2 g/dL (3.4-5.0) Albumin/Globulin Ratio 0.8 (1.0-1.7) Nasal Screen MRSA (PCR) Negative (Negative) Lactic Acid Level 1.4 mmol/L (0.4-2.0) Test 06/03/17 10:20 06/04/17 07:43 Troponin I Quantitative 0.068 ng/mL (0-0.055) White Blood Count 18.1 x10^3/uL (4.0-11.0) Red Blood Count 4.10 x10^6/uL (4.30-5.70) Hemoglobin 12.5 g/dL (13.0-17.5) Hematocrit 37.2 % (39.0-53.0) Mean Corpuscular Volume 91 fL (79-100) Mean Corpuscular Hemoglobin 31 pg (25-35) Mean Corpuscular Hemoglobin Concent 34 g/dL (31-37) Red Cell Distribution Width 15.3 % (11.5-14.5) Platelet Count 175 x10^3/uL (140-400) Neutrophils (%) (Auto) 87 % (31-73) Lymphocytes (%) (Auto) 8 % (24-48) Monocytes (%) (Auto) 5 % (0-9) Eosinophils (%) (Auto) 0 % (0-3) Basophils (%) (Auto) 0 % (0-3) Neutrophils # (Auto) 15.7 x10^3uL (1.8-7.7) Lymphocytes # (Auto) 1.5 x10^3/uL (1.0-4.8) Monocytes # (Auto) 0.8 x10^3/uL (0.0-1.1) Eosinophils # (Auto) 0.0 x10^3/uL (0.0-0.7) Basophils # (Auto) 0.0 x10^3/uL (0.0-0.2) Sodium Level 137 mmol/L (136-145) Potassium Level 4.4 mmol/L (3.5-5.1) Chloride Level 103 mmol/L (98-107) Carbon Dioxide Level 25 mmol/L (21-32) Anion Gap 9 (6-14) Blood Urea Nitrogen 48 mg/dL (8-26) Creatinine 2.1 mg/dL (0.7-1.3) Estimated GFR (Cockcroft-Gault) 30.2 Glucose Level 160 mg/dL (70-99) Calcium Level 8.4 mg/dL (8.5-10.1) Microbiology 06/03/17 Blood Culture - Preliminary, Resulted NO GROWTH AFTER 1 DAY Medications Current Medications Albuterol/ Ipratropium (Duoneb) 3 ml 1X ONCE NEB Last administered on 22:08; Start 06/02/17 at 21:00; Stop 06/02/17 at 21:04; Status DC Ceftriaxone Sodium 1 gm/ Sodium Chloride 50 ml @ 100 mls/hr 1X ONCE IV ; Start 06/02/17 at 22:15; Stop 06/02/17 at 22:44; Status UNV Azithromycin 500 mg/Sodium Chloride 250 ml @ 250 mls/hr 1X ONCE IV Last administered on 06/02/17 22:28; Start 06/02/17 at 22:30; Stop 06/02/17 at 23 :29; Status DC Azithromycin (Zithromax) 500 mg STK-MED ONCE IV ; Start 06/02/17 at 22:11; Stop 06/02/17 at 22:12; Status DC Ceftriaxone Sodium (Rocephin) 1 gm STK-MED ONCE IV ; Start 06/02/17 at 22:11; Stop 06/02/17 at 22:12; Status DC Ceftriaxone Sodium (Rocephin) 1 gm 1X ONCE IVP Last administered on 22:30; Start 06/02/17 at 22:30; Stop 06/02/17 at 22:31; Status DC Albuterol Sulfate (Ventolin) 5 mg 1X ONCE NEB Last administered on 06/02/17 22:28; Start 06/02/17 at 22:30; Stop 06/02/17 at 22:31; Status DC Aspirin (Children'S Aspirin) 324 mg 1X ONCE PO Last administered on 22:35; Start 06/02/17 at 22:30; Stop 06/02/17 at 22:31; Status DC Ceftriaxone Sodium (Rocephin) 1 gm 1X ONCE IVP ; Start 06/02/17 at 23:00; Stop 06/02/17 at 23:01; Status DC Ondansetron HCl (Zofran) 4 mg PRN Q4HRS PRN IV NAUSEA/VOMITING; Start at 23:00; Stop 06/03/17 at 22:59; Status DC Morphine Sulfate (Morphine 2mg Syringe) 2 mg PRN Q2HR PRN IV PAIN; Start 06/02 at 23:00; Stop 06/03/17 at 22:59; Status DC Acetaminophen (Tylenol) 650 mg PRN Q4HRS PRN PO FEVER; Start 06/02/17 at 23:00 ; Stop 06/03/17 at 22:59; Status DC Nitroglycerin (Nitrostat) 0.4 mg PRN Q5MIN PRN SL CHEST PAIN; Start 06/02/17 at 23:00; Stop 06/03/17 at 22:59; Status DC Albuterol/ Ipratropium (Duoneb) 3 ml RTQID NEB Last administered on 06/04/17 06:00; Start 06/03/17 at 08:00; Stop 06/04/17 at 07:59; Status DC Methylprednisolone Sodium Succinate (SOLU-Medrol 125MG VIAL) 125 mg 1X ONCE IV Last administered on 06/03/17 02:45; Start 06/03/17 at 02:30; Stop at 02:32; Status DC Albuterol/ Ipratropium (Duoneb) 3 ml STK-MED ONCE .ROUTE ; Start 06/03/17 at 05 :11; Stop 06/03/17 at 05:12; Status DC Amlodipine Besylate (Norvasc) 10 mg BIDWMEALS PO ; Start 06/03/17 at 10:00; Stop 06/03/17 at 10:17; Status DC Aspirin (Children'S Aspirin) 81 mg DAILY08 PO Last administered on 06/04/17 08:11; Start 06/03/17 at 09:15 Carvedilol (Coreg) 6.25 mg BID PO ; Start 06/03/17 at 09:00; Stop 06/03/17 at 10:16; Status DC Cetirizine HCl (ZyrTEC) 10 mg BID PO Last administered on 06/04/17 08:18; Start 06/03/17 at 10:00 Vitamin D (Vitamin D3) 2,000 unit DAILY PO Last administered on 06/04/17 08: 11; Start 06/03/17 at 09:00 Furosemide (Lasix) 20 mg DAILY PO ; Start 06/03/17 at 09:30; Status Future Hold Misoprostol (Cytotec) 100 mcg TID PO Last administered on 06/04/17 08:17; Start 06/03/17 at 09:30 Ondansetron HCl (Zofran Odt) 4 mg Q8HRS PO Last administered on 06/04/17 06: 30; Start 06/03/17 at 14:00 Alprazolam (Xanax) 1 mg PRN TID PRN PO ANXIETY / AGITATION; Start 06/03/17 at 09:30 Atorvastatin Calcium (Lipitor) 40 mg QHS PO Last administered on 06/03/17 21: 25; Start 06/03/17 at 21:00 Losartan Potassium (Cozaar) 100 mg DAILY PO ; Start 06/03/17 at 09:30; Stop at 10:16; Status DC Multivitamins/ Minerals (I-Jose F) 1 tab DAILYWLUN PO ; Start 06/04/17 at 12:00 Ceftriaxone Sodium 1 gm/ Sodium Chloride 50 ml @ 100 mls/hr Q24H IV Last administered on 06/04/17 08:58; Start 06/03/17 at 09:00 Doxycycline Hyclate (Vibra-Tab) 100 mg BID PO Last administered on 06/04/17 08:17; Start 06/03/17 at 09:15 Losartan Potassium (Cozaar) 50 mg DAILY PO Last administered on 06/04/17 08: 17; Start 06/04/17 at 09:00 Metoprolol Tartrate (Lopressor) 12.5 mg BID PO Last administered on 06/04/17 08:14; Start 06/03/17 at 10:30 Amlodipine Besylate (Norvasc) 10 mg DAILY PO Last administered on 06/04/17 08 :13; Start 06/04/17 at 09:00 Bisacodyl (Dulcolax Supp) 10 mg 1X ONCE MO Last administered on 06/03/17 15: 10; Start 06/03/17 at 10:30; Stop 06/03/17 at 10:37; Status DC Lactobacillus Rhamnosus (Culturelle) 1 cap BID PO Last administered on t 08:11; Start 06/04/17 at 09:00 Active Scripts Active Zofran Odt (Ondansetron) 4 Mg Tab.rapdis 1 Tab SL Q8HRS Reported Losartan Potassium 100 Mg Tablet 100 Mg PO DAILY Amlodipine Besylate 10 Mg Tablet 10 Mg PO BIDWMEALS Osteo Bi-Flex Caplet (Glucosamine Hcl/Chondr Elizabeth A Na) 1 Each Tablet 1 Each PO BIDWMEALS Vitamin D3 (Cholecalciferol (Vitamin D3)) 1,000 Unit Tablet 2,000 Unit PO DAILY Misoprostol 100 Mcg Tablet 100 Mcg PO TID Coreg (Carvedilol) 6.25 Mg Tablet 6.25 Mg PO BID Lasix (Furosemide) 20 Mg Tablet 20 Mg PO DAILY Zyrtec (Cetirizine Hcl) 10 Mg Tablet 10 Mg PO BID Xanax (Alprazolam) 1 Mg Tablet 1 Mg PO TID PRN Ocuvite Softgel (Vit C/Vit E/Lutein/Min/Hopkins-3) 1 Each Capsule 1 Each PO DAILYWLUN Fish Oil 1,200 Mg Fish Oil (Fish Oil/Dha/Epa) 1 Each Capsule 1 Each PO BIDWMEALS Lipitor (Atorvastatin Calcium) 40 Mg Tablet 40 Mg PO QHS Aspirin 81 Mg Tab.chew 81 Mg PO DAILY08 Vitals/I & O Vital Sign - Last 24 Hours 06/03/17 06/03/17 06/03/17 06/03/17 11:10 11:11 15:40 16:43 Temp 97.7 98.4 Pulse 102 102 77 Resp 18 20 B/P (MAP) 141/63 (89) 143/62 116/51 (72) Pulse Ox 94 98 O2 Delivery Room Air Room Air Room Air 06/03/17 06/03/17 06/03/17 06/03/17 19:00 20:15 20:20 21:26 Pulse 77 77 Resp 20 B/P (MAP) 121/53 (75) 121/53 Pulse Ox 96 94 O2 Delivery Room Air Room Air Room Air 06/03/17 06/04/17 06/04/17 06/04/17 23:00 03:00 05:30 08:13 Temp 97.9 Pulse 74 62 65 Resp 20 18 B/P (MAP) 143/59 (87) 138/63 (88) 122/59 Pulse Ox 95 96 96 O2 Delivery Room Air Room Air Room Air 06/04/17 06/04/17 06/04/17 08:14 08:17 09:17 Pulse 65 65 59 B/P (MAP) 122/59 122/59 122/59 (80) Intake and Output 06/03/17 06/03/17 06/04/17 15:00 23:00 07:00 Intake Total 240 ml 1470 ml 840 ml Balance 240 ml 1470 ml 840 ml ZARA RAMIREZ MD 06/04/17 1434: PROGRESS NOTES Assessment Patient seen and examined The patient reports feeling better today. Acute COPD exacerbation. Improving. Continue as per the primary physician. Minimally elevated troponin at 0.115 with a history of coronary artery disease. LV function is normal by echo. At this time we'll continue medical treatment. Gradually increase activities. We'll check an outpatient MPI test. Hypertension. Better control continue medications. Hyperlipidemia. Continue statins. Chronic kidney disease. Monitoring of lab. Diabetes mellitus as per the primary service. Problems: DARRICK ROSAS APRN Jun 04, 2017 09:34 ZARA RAMIREZ MD Jun 04, 2017 14:34
[2017-06-04 11:08] VITALS: BP 126/65
[2017-06-04] MEDS: MULTIVITAMIN I-VITE TABLET. PO SCH (12:00)
[2017-06-04 15:20] VITALS: BP 125/49
[2017-06-04 19:56] VITALS: BP 130/50
[2017-06-04] MEDS: ATORVASTATIN CALCIUM 20 MG TABLET PO SCH (20:26)
[2017-06-04 23:45] VITALS: BP 132/58
[2017-06-05] MEDS ORDERED: ONDANSETRON ODT 4 MG TAB.RAPDIS PO PRN (01:30)
[2017-06-05] MEDS: IPRATRPIUM/ALBUTEROL 0.5/2.5MG 3 ML NEBU. NEB SCH ×2 (05:36→10:03)
[2017-06-05 05:53] VITALS: BP 156/81
[2017-06-05] MEDS: CHOLECALCIFEROL (VITAMIN D3) 1,000 UNIT TABLET PO SCH (08:31)
[2017-06-05] MEDS: LOSARTAN 50 MG TABLET. PO SCH (08:31)
[2017-06-05] MEDS: DOXYCYCLINE HYCLATE 100 MG TABLET PO SCH (08:31)
[2017-06-05] MEDS: LACTOBACILLUS RHAMNOSUS GG 1 CAPSULE. PO SCH (08:31)
[2017-06-05] MEDS: CETIRIZINE HCL 10 MG TABLET PO SCH (08:31)
[2017-06-05] MEDS: ASPIRIN 81 MG TAB.CHEW PO SCH (08:32)
[2017-06-05] MEDS: amLODIPine BESYLATE 10 MG TABLET PO SCH (08:32)
[2017-06-05] MEDS: miSOPROStol 100 MCG TABLET PO SCH (08:35)
[2017-06-05] MEDS: METOPROLOL TART IMMED RELEASE 25 MG TABLET PO SCH (08:35)
[2017-06-05] MEDS ORDERED: cefTRIAXone IV Push 1 GM VIAL. IVP SCH (09:00)
[2017-06-05 11:16] VITALS: BP 133/67
[2017-06-05] MEDS: MULTIVITAMIN I-VITE TABLET. PO SCH (12:17)
[2017-06-05] MEDS ORDERED: AMLO10TA2 PO (12:37)
[2017-06-05] MEDS ORDERED: DOXY100T PO ×2 (12:37→12:53)
[2017-06-05] MEDS ORDERED: IPRA3AMP NEB (12:37)
[2017-06-05] MEDS ORDERED: PRED-220 PO (12:39)
--- NOTE | 2017-06-06 00:45 | DS ---
DATE OF DISCHARGE: 06/05/2017 HOSPITAL COURSE: An 86-year-old male seen initially through the Emergency Room with exacerbation of COPD, extremely short of breath, first degree AV block, acute bronchitis, right bundle branch block, elevated troponin levels and CKD 3. The patient was placed on IV antibiotic therapy, aggressive pulmonary toilet. He made excellent progress during the rest of his hospitalization, although his white count was on the elevated side ____ probably related to possibly to medication. The patient's temperature remained afebrile. Chest x-ray showed chronic bronchitis, active bronchitis in the left mid lung zone. No obvious other abnormality noted. He did have elevated troponin levels and the patient was discharged home. He will use nebulizer. He will continue on oral antibiotics and make further evaluation as an outpatient. IMPRESSION: Acute on top of chronic bronchitis, acute on top of chronic obstructive pulmonary disease, chronic kidney disease stage 3, leukocytosis, elevated troponin levels. He will follow up with Cardiology as an outpatient. See MRAD. Decreased activity. He will be on a heart healthy diet. WILLIAM SEVERINO MD DR: JROGITO/dalia JOB#: [id number] / [id number]
== END 2017-06-05 13:44 | disposition home or self-care (01) | DRG 280 ==
LOC: ER 20:30 → ICU 22:26 → 1 SOUTH 06-04 16:04
PROVIDERS: ADMIT Family Medicine; ATTEND Family Medicine
PROC: 5A09357 Assistance with Respiratory Ventilation, Less than 24 Consecutive Hours, Continuous Positive Airway Pressure (ICD-10-PCS; principal; 2017-06-03)
PROC: 5A09357 Assistance with Respiratory Ventilation, Less than 24 Consecutive Hours, Continuous Positive Airway Pressure (ICD-10-PCS; 2017-06-04)
PROC: 5A09357 Assistance with Respiratory Ventilation, Less than 24 Consecutive Hours, Continuous Positive Airway Pressure (ICD-10-PCS; 2017-06-05)
DX: I21.4 Non-ST elevation (NSTEMI) myocardial infarction (principal); J18.9 Pneumonia, unspecified organism; E11.22 Type 2 diabetes mellitus with diabetic chronic kidney disease; I42.9 Cardiomyopathy, unspecified; J44.0 Chronic obstructive pulmonary disease with (acute) lower respiratory infection; N18.3 Chronic kidney disease, stage 3 (moderate); J44.1 Chronic obstructive pulmonary disease with (acute) exacerbation; N25.81 Secondary hyperparathyroidism of renal origin; E78.00 Pure hypercholesterolemia, unspecified; E78.5 Hyperlipidemia, unspecified; G47.33 Obstructive sleep apnea (adult) (pediatric); H91.92 Unspecified hearing loss, left ear; I12.9 Hypertensive chronic kidney disease with stage 1 through stage 4 chronic kidney disease, or unspecified chronic kidney disease; F32.9 Major depressive disorder, single episode, unspecified; F41.9 Anxiety disorder, unspecified; M19.90 Unspecified osteoarthritis, unspecified site; I25.10 Atherosclerotic heart disease of native coronary artery without angina pectoris; I44.0 Atrioventricular block, first degree; E66.9 Obesity, unspecified; I45.10 Unspecified right bundle-branch block; J20.9 Acute bronchitis, unspecified; K59.00 Constipation, unspecified; N40.1 Benign prostatic hyperplasia with lower urinary tract symptoms; Z85.038 Personal history of other malignant neoplasm of large intestine; Z85.828 Personal history of other malignant neoplasm of skin; Z86.73 Personal history of transient ischemic attack (TIA), and cerebral infarction without residual deficits; Z87.891 Personal history of nicotine dependence; Z95.5 Presence of coronary angioplasty implant and graft; Z68.32 Body mass index [BMI] 32.0-32.9, adult; Z88.8 Allergy status to other drugs, medicaments and biological substances; Z90.49 Acquired absence of other specified parts of digestive tract
CPT/HCPCS: 36415; 71020; 80048; 80053; 83605; 83880; 84484; 85007; 85025; 87040; 87641; 93005; 93306; 94640; 96365; 96366; 96375; J0456; J0696; J2930; J7050; J7613; J7620; Q0162; 99285-25

== ENCOUNTER → 2017-11-02 | Outpatient (CLI) | payer MEDICARE, OTHER ==
[~2017-11-02] MED LIST changes: +DOXY100T PO; +IPRA3AMP NEB; +PRED-220 PO
--- NOTE | 2017-11-02 17:28 | RAD ---
Examination: Ultrasound kidneys HISTORY: History of chronic renal disease COMPARISON: 01/07/2010 FINDINGS: The right kidney measures 12.2 x 5.7 x 5.2 cm.The left kidney measures 12.5 x 5.3 x 5.1 cm. Prominent renal pyramids identified in the bilateral kidneys. Mildly echogenic appearing right and left kidneys. There are multiple cystic structures identified in the right kidney measuring 1.7, 1.4 and 1.2 cm likely cyst Urinary bladder is mildly distended Bilateral ureteral jets are identified. IMPRESSION: 1. Right renal cysts. 2. Mild echogenic appearing right and left kidneys likely medical renal disease. Electronically signed by: Mansoor Landry MD (11/02/2017 5:24 PM) [id number]
== END | disposition home or self-care (01) ==
LOC: US 15:04
PROVIDERS: ATTEND Internal Medicine Nephrology
DX: I12.9 Hypertensive chronic kidney disease with stage 1 through stage 4 chronic kidney disease, or unspecified chronic kidney disease (principal); E11.22 Type 2 diabetes mellitus with diabetic chronic kidney disease; N18.3 Chronic kidney disease, stage 3 (moderate); N28.1 Cyst of kidney, acquired; N32.89 Other specified disorders of bladder
CPT/HCPCS: 76770

== ENCOUNTER 2019-04-28 09:55 | Inpatient (IN) | payer MEDICARE, OTHER ==
[~2019-04-28] VITALS: Ht 180.3 cm; Wt 108.9 kg
[~2019-04-28 09:55] MED LIST changes: -AMLO10TA2 PO; +AMLO10TA8 PO; +AMLO5TAB10 PO; -AMLO5TAB2 PO; -IPRA3AMP NEB; +IPRA3AMP29 NEB; +LOSA100T14 PO; -LOSA100T6 PO; +OCUVITE SOFTGE1 EACH PO; -VIT1CAPS11 PO
--- NOTE | 2019-04-28 10:06 | EKG ---
[address] [address] Test Date: 2019-04-28 Test Time: 10:03:09 Pat Name: SEAN SHEEHAN Department: Room: Gender: M Jig Bore Operator: : 1930 Requested By: MINOO KINNEY Order Number: [id number] Reading MD: Bryant Antony MD Measurements Intervals [place] Rate: 58 P: 62 RI: 270 QRS: -52 QRSD: 148 T: 32 QT: 486 QTc: 476 Interpretive Statements SINUS RHYTHM PROLONGED RI INTERVAL LAD RBBB NON-SPECIFIC ST/T CHANGES Electronically Signed On 04-29-2019 13:26:08 [employer] by Bryant Antony MD
--- NOTE | 2019-04-28 10:09 | PHYS DOC ---
Past History Past Medical History: Anxiety, Asthma, CAD, Cancer, COPD, Depression, Hypertension, Renal Disease, TIA Past Surgical History: Colectomy Alcohol Use: None Drug Use: None Adult General Chief Complaint Chief Complaint: ABNORMAL LABS HPI HPI Patient is a 88-year-old male who was sent to the emergency room from his primary doctor's office apparently for some abnormal labs that were drawn on Wednesday. The report I'm hearing from the patient is there was elevated troponin and a reported abnormal EKG Patient says this all started 2 weeks ago he was down in [place] on vacation he had some pain and numbness in his left arm it was really hard to move it hurt when he moved it. He came back to talk to his primary doctor about that he had these labs drawn apparently his blood pressure was in the 220s 2 weeks ago the blood pressure was checked on Wednesday as well but he does not know that number. A CT noncontrast head CT was ordered as well yesterday per clement CREDIT ASSISTANT at [facility] said he was complaing of intermittent angina symptoms. Patient denies that but does describe the left arm pain about 10 days ago last pressure 146/64 on 04/24. upper limit is <0.3 trop 0.63 04/24 0.770 on 04/26 vIMPRESSION: No acute intracranial hemorrhage. Minimal parenchymal calcification noted along the left posterior superior frontal gyrus and posterior left insula, nonspecific. Findings may be associated with underlying metabolic disturbance versus remote trauma/infection. If there is persistent clinical concern, further evaluation with MRI may be of benefit. Electronically signed by: Suze Arias MD (04/27/2019 10:39 AM) [id number] Results noted above Patient states he is only here because he was asked to come here by his primary doctor's office he feels fine this morning no chest pain no shortness of breath the arm feels fine no other symptoms no headache does report a cardiac stent back in 2010 he takes a baby aspirin once a day for that. Review of Systems Review of Systems Constitutional: Denies fever or chills [] Eyes: Denies change in visual acuity, redness, or eye pain [] HENT: Denies nasal congestion or sore throat [] Respiratory: Musculoskeletal: Denies back pain or joint pain [] Integument: Denies rash or skin lesions [] Neurologic: Denies headache, focal weakness or sensory changes [] Endocrine: Denies polyuria or polydipsia [] All other systems were reviewed and found to be within normal limits, except as documented in this note. Allergies Allergies Allergies Coded Allergies Type Severity Reaction Last Updated Verified codeine Allergy Intermediate 12/27/13 Yes Physical Exam Physical Exam Constitutional: Well developed, well nourished, no acute distress, non-toxic appearance. [] HENT: Normocephalic, atraumatic, bilateral external ears normal, oropharynx moist, no oral exudates, nose normal. [] Eyes: PERRLA, EOMI, conjunctiva normal, no discharge. [] Neck: Normal range of motion, no tenderness, supple, no stridor. [] Cardiovascular:Heart rate regular rhythm, no murmur [] Lungs & Thorax: Bilateral breath sounds clear to auscultation [] Abdomen: Bowel sounds normal, soft, no tenderness, no masses, no pulsatile masses. [] Skin: Warm, dry, no erythema, no rash. [] Back: No tenderness, no CVA tenderness. [] Extremities: No tenderness, no cyanosis, no clubbing, ROM intact, trace edema noted Neurologic: Alert and oriented X 3, normal motor function, normal sensory function, no focal deficits noted. [] Psychologic: Affect normal, judgement normal, mood normal. [] EKG EKG []Normal sinus rhythm rate of 58 there is a bundle branch block pattern but no STEMI in light of that interpreted by me the time of encounter. similar to Radiology/Procedures Radiology/Procedures [] Impressions: Chest x-ray was negative acute Course & Med Decision Making Course & Med Decision Making Pertinent Labs and Imaging studies reviewed. (See chart for details) []81 several male with known coronary disease status post stent placement about 10 years ago COPD hypertension chronic kidney disease who is presenting from the primary doctor office with elevated troponin. I do have the records showing elevated troponin earlier this week 0.6 and 0.7. Those have been posted to his chart troponin here in the emergency room was negative however patient did have significantly elevated blood pressure as well as left arm symptoms possibly referrable to cardiac etiology in the past 10 days or so. No prior stress testing. Light of that I think he warrants admission for serial troponins and consideration of risk stratification. I spoke with Dr. Soriano at [facility] 11 am Sofía Disclaimer Dragon Disclaimer This electronic medical record was generated, in whole or in part, using a voice recognition dictation system. Departure Departure: Impression: Primary Impression: Chest pain Disposition: ADMITTED INPATIENT Admitting Physician: Esperanza Soriano Condition: STABLE Referrals: WILLIAM SEVERINO MD (PCP) MINOO KINNEY MD Apr 28, 2019 10:09
[2019-04-28] MEDS ORDERED: ASPIRIN 81 MG TAB.CHEW PO ONE (10:15)
[2019-04-28 10:34] LABS: BASO % 0 % (0-3); EOS # 1.1 x10^3/uL (0.0-0.7); EOS % 13 % (0-3); HEMATOCRIT 39.4 % (39.0-53.0); HEMOGLOBIN 12.9 g/dL (13.0-17.5); LYMPH # 2.8 x10^3/uL (1.0-4.8); LYMPH % 34 % (24-48); MEAN CORPUSCULAR HEMOGLOBIN 31 pg (25-35); MEAN CORPUSCULAR HGB CONC 33 g/dL (31-37); MEAN CORPUSCULAR VOLUME 93 fL (79-100); MONO # 0.6 x10^3/uL (0.0-1.1); MONO % 7 % (0-9); NEUT # 3.8 x10^3uL (1.8-7.7); NEUT % 45 % (31-73); PLATELET COUNT 178 x10^3/uL (140-400); RED BLOOD COUNT 4.22 x10^6/uL (4.30-5.70); RED CELL DISTRIBUTION WIDTH 13.7 % (11.5-14.5); WHITE BLOOD COUNT 8.3 x10^3/uL (4.0-11.0)
[2019-04-28 10:40] LABS: ALBUMIN 3.2 g/dL (3.4-5.0); ALBUMIN/GLOBULIN RATIO 0.7 (1.0-1.7); CALCIUM 8.7 mg/dL (8.5-10.1); CREATININE 1.9 mg/dL (0.7-1.3); GFR 33.7; POTASSIUM 4.3 mmol/L (3.5-5.1); TOTAL BILIRUBIN 0.3 mg/dL (0.2-1.0); TOTAL PROTEIN 7.6 g/dL (6.4-8.2)
--- NOTE | 2019-04-28 10:54 | RAD ---
Single view of the chest. 04/28/2019 10:01 AM Indication: Cough, shortness of breath Comparison: Chest radiograph June 02, 2017 Findings: There is no focal consolidation. No pneumothorax or effusion is seen. Calcified lymph nodes in the right hilum appears to be present. Heart size is top normal. Atherosclerotic vascular calcification of the thoracic aorta noted. Bony thorax is grossly intact. Impression: No evidence of acute cardiopulmonary process. Electronically signed by: Vinh Iraheta MD (04/28/2019 10:50 AM) [id number]
[2019-04-28] MEDS ORDERED: NITROGLYCERIN SUBLINGUAL 0.4 MG BOTTLE OF 25. SL PRN (11:15)
--- NOTE | 2019-04-28 12:45 | NUR ---
The patient, SEAN SHEEHAN, 88 y/o, M admitted by LORETA MEYERS MD, was given written information regarding hospital policies, unit procedures and contact persons. Valuables were checked and logged. Pt is alert and oriented x4. No complaints. On RA. WCTM.
[2019-04-28 13:14] VITALS: BP 179/72
[2019-04-28] MEDS ORDERED: METH10CA PO (13:32)
[2019-04-28] MEDS ORDERED: LOSA50TA86 PO (13:32)
[2019-04-28] MEDS ORDERED: ALPR0.5T PO (13:32)
[2019-04-28] MEDS ORDERED: DOCU50CA9 PO (13:32)
--- NOTE | 2019-04-28 13:39 | NUR ---
Consult called into cardiology for patient for chest pain.
[2019-04-28 15:34] VITALS: BP 150/58
[2019-04-28] MEDS ORDERED: LOSARTAN 50 MG TABLET. PO SCH (15:45)
[2019-04-28] MEDS ORDERED: FUROSEMIDE 20 MG TABLET PO PRN (15:45)
--- NOTE | 2019-04-28 15:52 | HP ---
ADMIT DATE: 04/28/2019 HISTORY OF PRESENT ILLNESS: The patient is an 88-year-old male patient, who apparently came to the Emergency Room, advised by his primary care physician as he had lab work done yesterday, which showed that his troponin was elevated and therefore, he was advised to come to the Emergency Room for further evaluation and treatment. According to the patient, he was at [place] about 2 weeks ago when he woke up with severe pain in his left arm that started around 6:30. He was unable to use his arm up until around midday; at that time, his blood pressure was extremely high according to him and he was offered to go to the Emergency Room, but he refused to go. He was seen at his primary care physician and apparently he has had his troponin done on 04/24 and was 0.63 and on 04/26, it was 0.77 and therefore, he was advised to come to the Emergency Room for further evaluation. His said that he was complaining of intermittent angina symptoms; however, the patient himself denied that, but does describe left arm pain about 10 days ago. He denied any chest pain, any shortness of breath, orthopnea or paroxysmal nocturnal dyspnea. He was seen in the Emergency Room and has had some lab work done, which showed his troponin to be less than 0.017 and was admitted to do 2 more sets of cardiac enzyme and consult the cardiology team. PAST MEDICAL HISTORY: Significant for coronary artery disease, status post PCI with stent deployment x 3. He has hypertension, hyperlipidemia, chronic kidney disease, colon cancer and obstructive sleep apnea for which he is on CPAP. PAST SURGICAL HISTORY: Significant for subtotal colectomy, appendectomy, bilateral cataract extraction and chest tube placement when he was 18 months old. ALLERGIES: He is allergic to CODEINE. MEDICATIONS: He is currently on following medications: He is on cetirizine 10 mg once a day, atorvastatin calcium 40 mg at bedtime, carvedilol 6.25 mg once a day, amlodipine besylate 10 mg once a day, losartan potassium 50 mg daily, aspirin 81 mg once a day, alprazolam 0.5 mg 3 times a day, furosemide 20 mg daily, Colace 50 mg twice a day and methyltestosterone 20 mg daily, cholecalciferol, vitamin D 2000 units daily, fish oil 1200 mg twice a day and glucosamine chondroitin sulfate for Osteo Bi-Flex 1 capsule twice a day. He is also on Ocuvite soft gel daily with lunch. FAMILY HISTORY: He has 2 brothers, 1 of myocardial infarction at 64, one is disabled, is alive at age of 60 and lives in a fdc. His 2 sisters are healthy. He does not know his biological father. His mother at age of 77. SOCIAL HISTORY: He is , has 1 biological daughter and 2 adopted children. He quit smoking and drinking alcohol about 25 years ago. Does not use any drugs. He is retired from . PHYSICAL EXAMINATION: GENERAL: On arrival to the Emergency Room, he looked well and was clearly in no apparent respiratory distress, pale, but no jaundice, cyanosis, or thyromegaly. No jugular venous distention. No lower limb edema. VITAL SIGNS: His heart rate was 55, blood pressure was 139/45, temperature was 97.7, respiratory rate was 18 and oxygen saturation was 97% on room air. HEAD, EYES, EARS, NOSE AND THROAT: Showed normocephalic, atraumatic. NECK: Supple. HEART: Showed normal first and second heart sounds. No gallop, rub or murmur. CHEST: Clear to auscultation. No crepitation or rhonchi. ABDOMEN: Distended, soft, nontender. No guarding or rigidity. No organomegaly. All hernial orifice intact. Bowel sounds normal. NEUROLOGIC: He was awake, alert, responding appropriately. All cranial nerves intact. EXTREMITIES: He moves extremities without difficulty, he ambulates without assistance or assistive devices. LABORATORY DATA: Showed a white cell count of 8300, hemoglobin 13, hematocrit 39, MCV 93, and platelet count of 178,000. His chemistry showed a serum sodium 143, potassium 4.3, chloride 108, bicarbonate 26, anion gap of 9, BUN 40, creatinine 1.9, estimated GFR was 33 mL per minute. His glucose was 95, calcium was 8.7. Total bilirubin, AST, ALT, alkaline phosphatase were normal. Troponin was less than 0.017. Total protein was 7.6, albumin was 3.2. His EKG showed that he was in normal sinus rhythm at 58 beats per minute with bundle branch block pattern, but no ST segment elevation. In summary, this is an 88-year-old male patient with elevated troponin done as an outpatient on 2 occasions by 2 days, on 04/24 and 04/26. He did not complain of any chest pain or shortness of breath. He was advised to come to the Emergency Room and his first set of cardiac enzymes actually less than 0.07. We will do 2 more sets of cardiac enzyme, consult our Cardiology team. I would think that he probably has non-ST segment elevation myocardial infarction at that time that was uneventful. He refused to go to the hospital when he was in [place]. In any case, we will await today Cardiology evaluation and their recommendation. LORETA MEYERS MD DR: MIKE/dalia JOB#: [id number] / [id number]
[2019-04-28] MEDS ORDERED: amLODIPine BESYLATE 10 MG TABLET PO SCH (16:00)
[2019-04-28] MEDS: OMEGA-3 FATTY ACIDS/FISH OIL 1,000 MG CAPSULE. PO SCH (16:43)
[2019-04-28] MEDS: GLUCOSAMINE/CHOND 500/400MG CAPSULE PO SCH (16:53)
[2019-04-28 20:09] VITALS: BP 172/51
[2019-04-28] MEDS ORDERED: ATORVASTATIN CALCIUM 20 MG TABLET PO SCH (21:00)
[2019-04-28] MEDS: CARVEDILOL 6.25 MG TABLET PO SCH (21:00)
[2019-04-28] MEDS: DOCUSATE SODIUM 100 MG CAPSULE PO SCH (22:02)
[2019-04-28] MEDS: ALPRAZolam 0.5 MG TABLET PO SCH (22:03)
[2019-04-28] MEDS: CETIRIZINE HCL 10 MG TABLET PO SCH (22:03)
[2019-04-28 22:49] VITALS: BP 187/65
[2019-04-29 02:45] VITALS: BP 176/66
[2019-04-29 04:45] VITALS: BP 147/76
[2019-04-29 05:02] VITALS: BP 147/76
[2019-04-29] MEDS ORDERED: ASPIRIN 81 MG TAB.CHEW PO SCH (08:00)
[2019-04-29] MEDS: CETIRIZINE HCL 10 MG TABLET PO SCH (08:38)
[2019-04-29] MEDS: DOCUSATE SODIUM 100 MG CAPSULE PO SCH (08:38)
[2019-04-29] MEDS: ALPRAZolam 0.5 MG TABLET PO SCH (08:39)
[2019-04-29] MEDS: OMEGA-3 FATTY ACIDS/FISH OIL 1,000 MG CAPSULE. PO SCH (08:39)
[2019-04-29] MEDS: GLUCOSAMINE/CHOND 500/400MG CAPSULE PO SCH (08:40)
[2019-04-29] MEDS: CARVEDILOL 6.25 MG TABLET PO SCH (08:40)
[2019-04-29] MEDS ORDERED: CHOLECALCIFEROL (VITAMIN D3) 1,000 UNIT TABLET PO SCH (09:00)
[2019-04-29] MEDS ORDERED: amLODIPine BESYLATE 10 MG TABLET PO SCH (09:00)
[2019-04-29] MEDS ORDERED: METHYLTESTOSTERONE PO SCH (09:00)
[2019-04-29] MEDS ORDERED: LOSARTAN 50 MG TABLET. PO SCH (09:00)
[2019-04-29 10:37] VITALS: BP 165/71
[2019-04-29] MEDS ORDERED: MULTIVITAMIN I-VITE TABLET. PO SCH (12:00)
--- NOTE | 2019-04-29 14:30 | NUR ---
Discharge Note: SEAN SHEEHAN Discharge instructions and discharge home medications reviewed with Patient and a copy given. All questions have been answered and understanding verbalized. The following instructions and handouts were given: discharge instructions Discontinued lines and drains: Peripheral IV intact. Patient discharged to Home or Self Care withSpousevia Ambulated
--- NOTE | 2019-04-29 15:28 | PDOC ---
PROVIDER NOTE PROVIDER NOTE PROVIDER NOTE Cardiology consultation note Consulting physician:Dr. Soriano Reason for consultation elevated troponin History of present illness 88-year-old man admitted to the hospital in the setting of hypertension and elevated troponin. It is unclear exactly what transpired but couple weeks ago he was apparently at a different city and had some shortness of breath and noted to have systolic blood pressure above 200. He did not seek medical attention. He was admitted after his physician on an outpatient basis check troponin over course of 2 days and was elevated and he was asked to come to the hospital. Since arrival to the hospital he denies any anginal symptoms. He does not have any syncope, palpitations, orthopnea or PND. His and daughter are at bedside. They do not have any concerning symptoms for him. Past medical history 1. Coronary artery disease status post remote PCI 2. History of colon cancer 3. Dyslipidemia 4. Obesity 5. COPD 6. Multiple other comorbidities including hypogonadism, BPH, secondary hyperparathyroidism, obstructive sleep apnea and morbid obesity along with chronic kidney disease No significant past family history Social history is unremarkable Medications reviewed including antihypertensives images losartan, carvedilol, amlodipine and aspirin and atorvastatin Review systems is negative unless otherwise mentioned above in history of present illness Allergies as noted above to codeine Physical exam The patient appeared well nourished and normally developed. Head exam is unremarkable. No scleral icterus or corneal arcus noted. Neck is without jugular venous distension, thyromegaly, or carotid bruits. Carotid upstrokes are brisk bilaterally. Lungs are clear to auscultation and percussion. Cardiac exam reveals the PMI to be normally sized and situated. Rhythm is regular. First and second heart sounds normal. No murmurs, rubs or gallops. Abdominal exam reveals normal bowel sounds, no masses, no organomegaly and no aortic enlargement. Extremities are nonedematous and both femoral and pedal pulses are normal. Msk: No traumua Neuro: No focal deficits Diagnostic studies reviewed: Cardiac enzymes negative 2 EKG is unremarkable for any significant ischemia Previous echocardiogram does not reveal any significant pathology. He is previous he advised to have a ischemic evaluation and this did not transpired Impression: 1. Dyspnea likely secondary to uncontrolled hypertension 2. Prior history of coronary disease and multiple other comorbidities Recommendations: 1. We will plan for outpatient ischemic stress testing to rule out any occult coronary disease. We will do this after optimization of medical therapy and blood pressure control. He will follow-up with us in the office. DINESH HUERTAS MD Apr 29, 2019 15:28
--- NOTE | 2019-04-29 19:36 | PN ---
DATE: SUBJECTIVE: An 88-year-old male who has been having intermittent chest pain off and on, although he is very stoic and denies most of the problems there. His troponins have been basically stable here, although previous ones have been elevated. He has been having intermittent angina. Creatinine is elevated to 1.9. Cardiology is to review the patient and make timely suggestions. OBJECTIVE: VITAL SIGNS: His blood pressure is 165/71, respiratory rate 12, pulse 56, afebrile. GENERAL: The patient is alert and oriented, feels dizzy, feels good without any chest discomfort. LUNGS: Diminished throughout, but clear. CARDIOVASCULAR: Regular sinus rhythm, S1, S2, without murmur, rub, thrill or extra heart sound. ABDOMEN: Protuberant, soft, nontender. EXTREMITIES: No clubbing, cyanosis, nor edema. NEUROLOGIC: The patient is alert and oriented x 3. Speech is fluent and appropriate. Cranial nerves 2-12 grossly intact. LABORATORY DATA: The patient's white count has been remaining stable, 8.3, 12 ad 39. Chemistries were all within normal limits, as was his troponin. Albumin of 3.2. Continue to monitor the patient accordingly, make further evaluation on him once Cardiology has reviewed the patient and make further assessment on him as indicated. IMPRESSION: Angina, possibly unstable, strong history for possibility of coronary artery disease. PLAN: Continue to monitor the patient accordingly, make further evaluation once Cardiology has reviewed. WILLIAM SEVERINO MD DR: JORGITO/dalia JOB#: [id number] / [id number]
== END 2019-04-29 14:30 | disposition home or self-care (01) | DRG 303 ==
LOC: ER 09:55 → 1 SOUTH 12:10
PROVIDERS: ADMIT Internal Medicine; ATTEND Family Medicine
DX: I25.119 Atherosclerotic heart disease of native coronary artery with unspecified angina pectoris (principal); N25.81 Secondary hyperparathyroidism of renal origin; F32.9 Major depressive disorder, single episode, unspecified; F41.9 Anxiety disorder, unspecified; G47.33 Obstructive sleep apnea (adult) (pediatric); I25.10 Atherosclerotic heart disease of native coronary artery without angina pectoris; N40.0 Benign prostatic hyperplasia without lower urinary tract symptoms; E66.9 Obesity, unspecified; J44.9 Chronic obstructive pulmonary disease, unspecified; E78.5 Hyperlipidemia, unspecified; N18.9 Chronic kidney disease, unspecified; I12.9 Hypertensive chronic kidney disease with stage 1 through stage 4 chronic kidney disease, or unspecified chronic kidney disease; Z68.33 Body mass index [BMI] 33.0-33.9, adult; Z85.038 Personal history of other malignant neoplasm of large intestine; Z98.42 Cataract extraction status, left eye; Z98.41 Cataract extraction status, right eye; Z88.5 Allergy status to narcotic agent; Z87.891 Personal history of nicotine dependence; Z86.73 Personal history of transient ischemic attack (TIA), and cerebral infarction without residual deficits; Z95.5 Presence of coronary angioplasty implant and graft; Z82.49 Family history of ischemic heart disease and other diseases of the circulatory system
CPT/HCPCS: 36415; 70450; 71045; 80053; 84484; 85025; 93005; 99285-25

== ENCOUNTER 2019-07-15 11:18 | Inpatient (IN) | payer MEDICARE, OTHER ==
[~2019-07-15] VITALS: Ht 180.3 cm; Wt 117.2 kg
[2019-07-15] VITALS (10 sets, daily range): BP systolic 91–134; BP diastolic 43–54
[~2019-07-15 11:18] MED LIST changes: +ALPR0.5T PO; -CETI10TA22 PO; +CETI10TA24 PO; +DOCU50CA9 PO; +LOSA50TA86 PO
[2019-07-15] MEDS ORDERED: IV NORMAL SALINE 1,000ML 1,000 ML IV ONE ×3 (12:00→13:30)
[2019-07-15] MEDS ORDERED: ONDANSETRON PF 4 MG/2 ML VIAL. IVP ONE (12:00)
--- NOTE | 2019-07-15 12:05 | PHYS DOC ---
Past History Past Medical History: CAD, Cancer, Hypertension Past Surgical History: Appendectomy, Other Additional Past Surgical Histo: cardiac stent; chest tube placed left back; colon resection for cancer Alcohol Use: Occasionally Drug Use: None Adult General Chief Complaint Chief Complaint: WEAKNESS/GENERALIZED HPI HPI Patient is a 88-year-old male with past medical history significant for hypertension, coronary artery disease, colon cancer history; presents secondary to complaint of reported elevated blood glucose at home at 550. Patient states that he took a glucose because he was feeling weak this morning. He states he has not felt well for couple of days. His is at bedside now who reports he has been sick recently with nonspecific symptoms. He is febrile in the ER with temperature of 102. He denies of a dry mouth. He denies chest pain or shortness of breath. Patient states he is a borderline diabetic and his glucose in the ER is 110 Review of Systems Review of Systems All other ROS is negative unless otherwise stated in HPI Allergies Allergies Allergies Coded Allergies Type Severity Reaction Last Updated Verified codeine Allergy Intermediate 04/28/19 Yes Physical Exam Physical Exam See above Constitutional: Well developed, well nourished, no acute distress, non-toxic appearance. [] HENT: Normocephalic, atraumatic, bilateral external ears normal, oropharynx slightly dry no oral exudates, nose normal. [] Eyes: PERRLA, EOMI, conjunctiva normal, no discharge. [] Neck: Normal range of motion, no tenderness, supple, no stridor. [] Cardiovascular: Tachycardic, no murmur no edema, irregular rhythm Lungs & Thorax: Bilateral breath sounds clear to auscultation [] Abdomen: Bowel sounds normal, soft, no tenderness, no masses, no pulsatile masses. [] Skin: Warm, dry, no erythema, no rash. [] Back: No tenderness, no CVA tenderness. [] Extremities: No tenderness, no cyanosis, no clubbing, ROM intact, no edema. [] Neurologic: Alert and oriented X 3, normal motor function, normal sensory function, no focal deficits noted. [] Psychologic: Affect normal, judgement normal, mood normal. [] Current Patient Data Lab Results Laboratory Tests Test 07/15/19 11:33 07/15/19 11:37 Glucose (Fingerstick) 121 mg/dL White Blood Count 14.7 x10^3/uL Red Blood Count 4.08 x10^6/uL Hemoglobin 12.2 g/dL Hematocrit 37.9 % Mean Corpuscular Volume 93 fL Mean Corpuscular Hemoglobin 30 pg Mean Corpuscular Hemoglobin Concent 32 g/dL Red Cell Distribution Width 13.4 % Platelet Count 168 x10^3/uL Neutrophils (%) (Auto) 76 % Lymphocytes (%) (Auto) 14 % Monocytes (%) (Auto) 6 % Eosinophils (%) (Auto) 3 % Basophils (%) (Auto) 0 % Neutrophils # (Auto) 11.1 x10^3uL Lymphocytes # (Auto) 2.1 x10^3/uL Monocytes # (Auto) 0.9 x10^3/uL Eosinophils # (Auto) 0.5 x10^3/uL Basophils # (Auto) 0.0 x10^3/uL Prothrombin Time 10.4 SEC Prothromb Time International Ratio 1.0 Activated Partial Thromboplast Time 26 SEC Sodium Level 139 mmol/L Potassium Level 5.4 mmol/L Chloride Level 104 mmol/L Carbon Dioxide Level 23 mmol/L Anion Gap 12 Blood Urea Nitrogen 42 mg/dL Creatinine 2.4 mg/dL Estimated GFR (Cockcroft-Gault) 25.7 BUN/Creatinine Ratio 18 Glucose Level 124 mg/dL Lactic Acid Level 1.6 mmol/L Calcium Level 8.1 mg/dL Total Bilirubin 0.3 mg/dL Aspartate Amino Transf (AST/SGOT) 21 U/L Alanine Aminotransferase (ALT/SGPT) 24 U/L Alkaline Phosphatase 75 U/L Creatine Kinase 85 U/L Creatine Kinase MB (Mass) 0.7 ng/mL Creatine Kinase MB Relative Index 0.8 % Troponin I Quantitative < 0.017 ng/mL DX-Eir-I-Type Natriuretic Peptide 200 pg/mL Total Protein 6.8 g/dL Albumin 3.1 g/dL Albumin/Globulin Ratio 0.8 Influenza Type A (Rapid) Negative Influenza Type B (Rapid) Negative Current Medications Medications (Trade) Dose Ordered Sig/Gerardo Route PRN Reason Start Time Stop Time Status Last Admin Dose Admin Levofloxacin/ Dextrose 150 ml @ 100 mls/hr 1X ONCE IV 07/15/19 12:00 07/15/19 13:29 DC 07/15/19 12:20 Sodium Chloride 1,000 ml @ 1,000 mls/hr 1X ONCE IV 07/15/19 12:00 07/15/19 12:59 DC 07/15/19 12:17 Ondansetron HCl (Zofran) 4 mg 1X ONCE IVP 07/15/19 12:00 07/15/19 12:06 DC 07/15/19 12:18 Sodium Chloride 1,000 ml @ 1,000 mls/hr 1X ONCE IV 07/15/19 13:00 07/15/19 13:59 07/15/19 13:02 Acetaminophen (Tylenol) 650 mg 1X ONCE PO 07/15/19 13:00 07/15/19 13:03 DC 07/15/19 13:10 Sodium Chloride 1,000 ml @ 1,000 mls/hr 1X ONCE IV 07/15/19 13:30 07/15/19 14:29 07/15/19 13:26 Laboratory Tests Test 07/15/19 11:33 Glucose (Fingerstick) 121 mg/dL (70-99) H EKG EKG EKG shows an irregular rhythm with multiple premature ventricular complexes.[] Radiology/Procedures Radiology/Procedures EXAM: PORTABLE CHEST 1V INDICATION: Fever. TECHNIQUE: Single portable AP view COMPARISON: 04/28/2019 FINDINGS: The heart size is borderline enlarged. The great vessels again show aortic calcification and tortuosity. There is no hilar or mediastinal mass. Lungs are hypoventilatory. There is no pleural effusion or pneumothorax. There are no significant osseous abnormalities. IMPRESSION: Borderline cardiomegaly and poor inspiration. No acute process otherwise noted. Electronically signed by: Allyn Solorio MD (07/15/2019 12:40 PM) [facility][] Course & Med Decision Making Course & Med Decision Making Pertinent Labs and Imaging studies reviewed. (See chart for details) Patient seen for not feeling well, reported weakness and noted blood glucose. His glucose is 110 in the ER. He does meet SIRS criteria so we will start with 1 L normal saline bolus as the patient does have a cardiac history and we'll wait for labs to come back to ensure he is not in congestive heart failure. We'll start Levaquin empirically. 1255: Patient's blood pressure is 82/41 so a second liter of normal saline has been initiated. Has been given Levaquin empirically for sepsis. He does have acute on chronic renal insufficiency and mild hyperkalemia. His chest x-ray does appear to show some right lower lobe pneumonia. Urinalysis is currently pending. We'll finish 2 L normal saline and if his blood pressure has not improved considerably after liter versus peripheral vasopressors. Patient's heart rate has improved slightly to 98. 1323: Certainly her IV fluids is currently infusing and patient's blood pressure is slowly improving. We'll third liter. Patient's congestive body weight is 201 pounds and when to kilograms this equals 2.7 liters of IV fluid. 1342: Blood pressure has improved to 108/45 and the patient is currently on his third liter of normal saline. Heart rate is now 88 with less frequent PVCs. I spoke with the patient's primary care physician and we will admit him to the ICU and start him on Zosyn 2.25 g every 6 hours based on renal function. Urinalysis is currently pending. Critical care time was [60] minutes exclusive of procedures. Dragon Disclaimer Dragon Disclaimer This electronic medical record was generated, in whole or in part, using a voice recognition dictation system. Departure Departure: Impression: Primary Impression: Acute renal injury Additional Impressions: Weakness Hyperkalemia Septic shock Pneumonia Disposition: ADMITTED INPATIENT Admitting Physician: William Geronimo Condition: STABLE Referrals: WILLIAM GERONIMO MD (PCP) Sepsis Assessment Date and Time of Assessment Date: Jul 15, 2019 Time: 12:03 Vital Signs Vital Signs Pulse 110 and temperature 102 Respirations Respiratory Effort: Normal Respiratory Pattern: Normal Cardiovascular Pulse Rhythm: Irregular Lung Sounds Breath Sounds: Clear Capillary Refill Capillary Refill: Lt Hand > 3 seconds Peripheral Pulse Pulse Location: Radial Pulse Strength: Normal (2+) Pulse Assessment Method: Palpation Integumentary Skin: Warm, Dry, No Rashes Skin Moisture: Dry Skin Turgor: Normal Skin Color: warm, dry, no edema Fingernail Color: WNL Sepsis Assessment Date and Time of Assessment Date: Jul 15, 2019 Time: 12:57 Vital Signs Vital Signs Vital Signs Date Time Temp Pulse Resp B/P (MAP) Pulse Ox O2 Delivery O2 Flow Rate FiO2 07/15/19 12:07 102 24 142/78 (99) 94 Room Air 07/15/19 11:20 102.0 96.0 Respirations Respiratory Effort: Normal Respiratory Pattern: Normal Cardiovascular Pulse Rhythm: Irregular (Tachycardic but improved) Lung Sounds Breath Sounds: Clear Capillary Refill Capillary Refill: Lt Hand > 3 seconds Peripheral Pulse Pulse Location: Radial Pulse Strength: Normal (2+) Pulse Assessment Method: Monitor Integumentary Skin: Warm, Dry, No Rashes Skin Moisture: Dry Skin Turgor: Normal Skin Color: warm, dry, no edema Fingernail Color: WNL Problem Qualifiers GLENROY PHILLIPS DO Jul 15, 2019 12:05
[2019-07-15 12:14] LABS: BASO % 0 % (0-3); EOS # 0.5 x10^3/uL (0.0-0.7); EOS % 3 % (0-3); HEMATOCRIT 37.9 % (39.0-53.0); HEMOGLOBIN 12.2 g/dL (13.0-17.5); LYMPH # 2.1 x10^3/uL (1.0-4.8); LYMPH % 14 % (24-48); MEAN CORPUSCULAR HEMOGLOBIN 30 pg (25-35); MEAN CORPUSCULAR HGB CONC 32 g/dL (31-37); MEAN CORPUSCULAR VOLUME 93 fL (79-100); MONO # 0.9 x10^3/uL (0.0-1.1); MONO % 6 % (0-9); NEUT # 11.1 x10^3uL (1.8-7.7); NEUT % 76 % (31-73); PLATELET COUNT 168 x10^3/uL (140-400); RED BLOOD COUNT 4.08 x10^6/uL (4.30-5.70); RED CELL DISTRIBUTION WIDTH 13.4 % (11.5-14.5); WHITE BLOOD COUNT 14.7 x10^3/uL (4.0-11.0)
[2019-07-15 12:17] LABS: CALCIUM 8.1 mg/dL (8.5-10.1); CREATININE 2.4 mg/dL (0.7-1.3); GFR 25.7; POTASSIUM 5.4 mmol/L (3.5-5.1)
[2019-07-15 12:35] LABS: INFLUENZA A PATIENT NEGATIVE (NEGATIVE); INFLUENZA B PATIENT NEGATIVE (NEGATIVE)
--- NOTE | 2019-07-15 12:43 | RAD ---
EXAM: PORTABLE CHEST 1V INDICATION: Fever. TECHNIQUE: Single portable AP view COMPARISON: 04/28/2019 FINDINGS: The heart size is borderline enlarged. The great vessels again show aortic calcification and tortuosity. There is no hilar or mediastinal mass. Lungs are hypoventilatory. There is no pleural effusion or pneumothorax. There are no significant osseous abnormalities. IMPRESSION: Borderline cardiomegaly and poor inspiration. No acute process otherwise noted. Electronically signed by: Allyn Solorio MD (07/15/2019 12:40 PM) [facility]
[2019-07-15 12:44] LABS: ALBUMIN 3.1 g/dL (3.4-5.0); ALBUMIN/GLOBULIN RATIO 0.8 (1.0-1.7); TOTAL BILIRUBIN 0.3 mg/dL (0.2-1.0); TOTAL PROTEIN 6.8 g/dL (6.4-8.2)
[2019-07-15] MEDS ORDERED: ACETAMINOPHEN 325 MG TABLET PO ONE (13:00)
--- NOTE | 2019-07-15 13:09 | EKG ---
[address] [address] Test Date: 2019-07-15 Test Time: 11:42:17 Pat Name: SEAN SHEEHAN Department: Room: Gender: M [employer] Associate: : [id number] Requested By: GLENROY PHILLIPS Order Number: [id number] Reading MD: Measurements Intervals [place] Rate: 110 P: NV: QRS: -74 QRSD: 138 T: 59 QT: 346 QTc: 474 Interpretive Statements IRREGULAR RHYTHM, NO P-WAVE FOUND VENTRICULAR PREMATURE COMPLEX(ES), TRIGEMINY ABNORMAL LEFT AXIS DEVIATION LEFT ANTERIOR FASCICULAR BLOCK NON SPECIFIC INTRAVENTRICULAR BLOCK RVH WITH REPOLARIZATION ABNORMALITY ABNORMAL ECG RI6.01 No previous ECG available for comparison
[2019-07-15] MEDS ORDERED: ACETAMINOPHEN 325 MG TABLET PO PRN (13:45)
[2019-07-15] MEDS ORDERED: PIPERACILLIN/TAZOBACTAM 2.25 GM in IV NORMAL SALINE 50ML 50 ML IV ONE (13:45)
[2019-07-15] MEDS ORDERED: ONDANSETRON PF 4 MG/2 ML VIAL. IV PRN (13:45)
[2019-07-15] MEDS ORDERED: PIP/TAZO PER PHARMACY MC PRN (13:45)
[2019-07-15] MEDS: IV NORMAL SALINE 1,000ML 1,000 ML IV SCH ×2 (14:53→20:25)
[2019-07-15] MEDS ORDERED: LOSA100T2 PO (16:12)
[2019-07-15] MEDS ORDERED: FUROSEMIDE 20 MG TABLET PO PRN (18:00)
[2019-07-15] MEDS ORDERED: MAG HYDROX/AL HYDROX/SIMETH 30 ML ORAL.SUSP PO PRN (18:00)
[2019-07-15] MEDS: NEOMYCIN/POLYMYXIN/HC OTIC SUSPENSION 10ML BOTTLE. AU SCH ×2 (18:00→21:00)
[2019-07-15] MEDS ORDERED: ACETAMINOPHEN 500 MG TABLET PO PRN (18:00)
[2019-07-15] MEDS: PIPERACILLIN/TAZOBACTAM 2.25 GM in IV NORMAL SALINE 50ML 50 ML IV SCH ×2 (19:14→23:46)
[2019-07-15] MEDS: ATORVASTATIN CALCIUM 20 MG TABLET PO SCH (20:24)
[2019-07-15] MEDS: DOCUSATE SODIUM 100 MG CAPSULE PO SCH (20:24)
[2019-07-15 22:01] LABS: BACTERIA,URINE 0 /HPF (0-FEW); BILIRUBIN,URINE NEG (NEG); CLARITY,URINE CLEAR; COLOR,URINE YELLOW; GLUCOSE,URINE NEG (NEG); NITRITE,URINE NEG (NEG); RBC,URINE OCC /HPF (0-2); UROBILINOGEN,URINE 0.2 mg/dL (0.2 mg/dL); WBC,URINE OCC /HPF (0-4)
[2019-07-15 22:02] LABS: SQUAMOUS EPITHELIAL CELL,UR OCC /LPF
[2019-07-15] MEDS: ZOLPIDEM 5 MG TABLET. PO PRN (23:46)
[2019-07-16] VITALS (24 sets, daily range): BP systolic 106–148; BP diastolic 45–58
[2019-07-16] MEDS: IV NORMAL SALINE 1,000ML 1,000 ML IV SCH (05:41)
[2019-07-16] MEDS: PIPERACILLIN/TAZOBACTAM 2.25 GM in IV NORMAL SALINE 50ML 50 ML IV SCH ×3 (05:41→17:39)
[2019-07-16 06:33] LABS: BASO % 0 % (0-3); EOS # 0.6 x10^3/uL (0.0-0.7); EOS % 6 % (0-3); HEMATOCRIT 34.3 % (39.0-53.0); HEMOGLOBIN 10.8 g/dL (13.0-17.5); LYMPH # 2.4 x10^3/uL (1.0-4.8); LYMPH % 25 % (24-48); MEAN CORPUSCULAR HEMOGLOBIN 30 pg (25-35); MEAN CORPUSCULAR HGB CONC 32 g/dL (31-37); MEAN CORPUSCULAR VOLUME 94 fL (79-100); MONO # 0.7 x10^3/uL (0.0-1.1); MONO % 7 % (0-9); NEUT # 5.9 x10^3uL (1.8-7.7); NEUT % 62 % (31-73); PLATELET COUNT 129 x10^3/uL (140-400); RED BLOOD COUNT 3.64 x10^6/uL (4.30-5.70); RED CELL DISTRIBUTION WIDTH 13.9 % (11.5-14.5); WHITE BLOOD COUNT 9.6 x10^3/uL (4.0-11.0)
[2019-07-16 06:47] LABS: ALBUMIN 2.5 g/dL (3.4-5.0); ALBUMIN/GLOBULIN RATIO 0.7 (1.0-1.7); CALCIUM 7.6 mg/dL (8.5-10.1); CREATININE 2.3 mg/dL (0.7-1.3); POTASSIUM 5.1 mmol/L (3.5-5.1); TOTAL BILIRUBIN 0.4 mg/dL (0.2-1.0); TOTAL PROTEIN 6.2 g/dL (6.4-8.2)
[2019-07-16] MEDS: DOCUSATE SODIUM 100 MG CAPSULE PO SCH ×2 (07:32→20:19)
[2019-07-16] MEDS: CHOLECALCIFEROL (VITAMIN D3) 1,000 UNIT TABLET PO SCH (07:33)
[2019-07-16] MEDS: CARVEDILOL 6.25 MG TABLET PO SCH ×2 (07:33→17:00)
[2019-07-16] MEDS: ASPIRIN 81 MG TAB.CHEW PO SCH (07:33)
[2019-07-16] MEDS: LOSARTAN 50 MG TABLET. PO SCH (07:34)
[2019-07-16] MEDS: amLODIPine BESYLATE 10 MG TABLET PO SCH (07:36)
[2019-07-16] MEDS: NEOMYCIN/POLYMYXIN/HC OTIC SUSPENSION 10ML BOTTLE. AU SCH ×4 (08:47→20:19)
[2019-07-16] MEDS ORDERED: VANCOMYCIN PER PHARMACY MC PRN (09:00)
[2019-07-16] MEDS: LACTOBACILLUS RHAMNOSUS GG 1 CAPSULE. PO SCH ×2 (09:01→20:19)
[2019-07-16] MEDS ORDERED: VANCOMYCIN 2 GM in IV NORMAL SALINE 500ML 500 ML IV ONE (09:30)
--- NOTE | 2019-07-16 10:09 | RAD ---
Exam performed: CT scan of the head without contrast. Date of Service: 02/25/2020. Comparison: None available. Clinical History: Headache. Technique: Helical acquisitions are obtained from the foramen magnum to the vertex without intravenous administration of contrast. Findings: The ventricles are midline without evidence of dilatation. Normal blackwell-white differentiation is maintained. There is mild atrophy. There is no extra axial fluid collection, intraparenchymal hemorrhage or mass lesion. There is air-fluid level in the right maxillary sinus, the remainder paranasal sinuses are clear. The visualized portions of the orbits appear normal.. The calvarium is intact. Impression: 1. No acute intracranial process detected. 2. Right maxillary sinus disease noted. PQRS Compliance Statement: One or more of the following individualized dose reduction techniques were utilized for this examination: 1. Automated exposure control 2. Adjustment of the mA and/or kV according to patient size 3. Use of iterative reconstruction technique Electronically signed by: Juliet Reilly MD (07/16/2019 10:06 AM) [facility]
--- NOTE | 2019-07-16 10:33 | HP ---
ADMIT DATE: 07/15/2019 HISTORY OF PRESENT ILLNESS: An 88-year-old male who had not been feeling well for the last week or so. Overall at home, living with his . The patient notes that he has been having elevated blood sugars this morning over 550. The patient was concerned obviously and he was not feeling as well as severe pain in his ears. The patient came in through the Emergency Room, was found to be possibly septic and as a result of this, he was admitted to the hospital. He also had a temperature of 102 degrees and the patient's ears were markedly swollen and erythematous. It appeared that he had some malignant external otitis media and the patient was admitted immediately for IV antibiotic therapy and treatment thereof. PAST MEDICAL HISTORY: He has had cataracts. He is deaf in his left ear to begin with, neurological disorders, TIAs, cardiac disorders, heart disease, coronary artery disease, cardiac surgery, coronary stent placement, hypercholesterolemia, hypertension, respiratory disorders, respiratory symptoms, sleep apnea, colorectal cancer, abdominal surgery, appendectomy, bowel resection for colon surgery, obesity, impotence, renal disease, urinary incontinence, BPH, psychiatric problems including depression. He used to be a smoker who quit, there was weakness, wears glasses, sinus congestion, history of cancer as noted. He has also had renal disease. IMMUNIZATIONS: The patient also has immunizations for influenza, pneumococcal are all up-to-date. PAST SURGICAL HISTORY: He has had bilateral blepharoplasty for his eyes. ALLERGIES: He has an allergy to CODEINE. MEDICATIONS: Reviewed in the computer and normally he takes Zyrtec 10, Lipitor 40, carvedilol 6.25 b.i.d., ____, Norvasc 10 mg a day, losartan 100 daily, aspirin 81, furosemide 20, Docusate sodium, vitamin D, fish oil, glucosamine, vitamin C, and Lutein. SOCIAL HISTORY: The patient denies presently any smoking, alcohol or drug use. , lives at home. FAMILY HISTORY: Noncontributory. REVIEW OF SYSTEMS: The patient is very hard of hearing and unable to give a real good answers, seems to be most of his problems up in his ears bilaterally swollen and erythematous with drainage. Otherwise, he denies chest pain, shortness of breath. Denies abdominal pain. Denies any melena, hematochezia, hematemesis and neurologically stable. PHYSICAL EXAMINATION: GENERAL: This is a very pleasant gentleman. VITAL SIGNS: Blood pressure 133/49, respiratory rate 14, pulse in the 50s. He is presently afebrile; although, when he came in, he had a pulse of 110 and temperature of 102. HEENT: The patient's head was atraumatic, normocephalic except for the ears lobes themselves were markedly swollen. Ear canals were markedly swollen and pussy drainage coming from them. Unable to visualize the TMs per se because of the drainage. The patient's eyes were PERRLA. Mouth and throat were basically normal. Poor dentition. ABDOMEN: Slightly swollen. NECK: Supple, no lymphadenopathy could be appreciated. LUNGS: Diminished, but clear throughout. CARDIOVASCULAR: Regular sinus rhythm. ABDOMEN: Protuberant, soft, nontender. EXTREMITIES: No clubbing, cyanosis. Trace edema. NEUROLOGIC: The patient was alert and oriented except for his hearing. His hearing was markedly diminished. LABORATORY DATA: As noted, his white count was 14,000, hemoglobin 12 and 37. The patient's sodium and potassium 142 and 5.2, BUN and creatinine were elevated to 40 and 2.4. Mild protein malnutrition. Calcium slightly low secondary to low protein and blood sugars were basically stable. Lactic acid 1.6. IMPRESSION: Malignant external otitis media, possible sepsis, pseudomonal infection, high probability; morbid obesity, type 2 diabetes, hyperglycemia, chronic kidney disease stage 3, moderate protein malnutrition. PLAN: Continue with IV antibiotic, vancomycin and Zosyn. Cultures have been taken of the ears, will be moderating other possible sources of his infection. WILLIAM SEVERINO MD DR: JORGITO/dalia JOB#: [id number] / [id number]
[2019-07-16] MEDS ORDERED: ALPR1TAB2 PO (16:39)
[2019-07-16] MEDS: ZOLPIDEM 5 MG TABLET. PO PRN (20:19)
[2019-07-16] MEDS: ATORVASTATIN CALCIUM 20 MG TABLET PO SCH (20:19)
[2019-07-16] MEDS: ALPRAZolam 0.5 MG TABLET PO SCH (20:19)
[2019-07-17] VITALS (13 sets, daily range): BP systolic 142–168; BP diastolic 50–80
[2019-07-17] MEDS: PIPERACILLIN/TAZOBACTAM 2.25 GM in IV NORMAL SALINE 50ML 50 ML IV SCH ×5 (00:52→23:32)
[2019-07-17 02:06] LABS: HEMOGLOBIN A1C 6.1 % (4.8-5.6)
[2019-07-17] MEDS: CARVEDILOL 6.25 MG TABLET PO SCH ×2 (07:19→17:12)
[2019-07-17 07:39] LABS: BASO % 1 % (0-3); EOS # 0.8 x10^3/uL (0.0-0.7); EOS % 10 % (0-3); HEMATOCRIT 35.9 % (39.0-53.0); HEMOGLOBIN 11.6 g/dL (13.0-17.5); LYMPH # 2.1 x10^3/uL (1.0-4.8); LYMPH % 24 % (24-48); MEAN CORPUSCULAR HEMOGLOBIN 30 pg (25-35); MEAN CORPUSCULAR HGB CONC 32 g/dL (31-37); MEAN CORPUSCULAR VOLUME 94 fL (79-100); MONO # 0.6 x10^3/uL (0.0-1.1); MONO % 7 % (0-9); NEUT # 5.1 x10^3uL (1.8-7.7); NEUT % 59 % (31-73); PLATELET COUNT 147 x10^3/uL (140-400); RED BLOOD COUNT 3.83 x10^6/uL (4.30-5.70); RED CELL DISTRIBUTION WIDTH 13.7 % (11.5-14.5); WHITE BLOOD COUNT 8.7 x10^3/uL (4.0-11.0)
[2019-07-17 07:40] LABS: CALCIUM 8.2 mg/dL (8.5-10.1); CREATININE 2.3 mg/dL (0.7-1.3); POTASSIUM 4.8 mmol/L (3.5-5.1)
[2019-07-17] MEDS: LACTOBACILLUS RHAMNOSUS GG 1 CAPSULE. PO SCH ×2 (08:01→20:21)
[2019-07-17] MEDS: ALPRAZolam 0.5 MG TABLET PO SCH (08:01)
[2019-07-17] MEDS: ASPIRIN 81 MG TAB.CHEW PO SCH (08:01)
[2019-07-17] MEDS: amLODIPine BESYLATE 10 MG TABLET PO SCH (08:02)
[2019-07-17] MEDS: LOSARTAN 50 MG TABLET. PO SCH (08:02)
[2019-07-17] MEDS: DOCUSATE SODIUM 100 MG CAPSULE PO SCH ×2 (08:03→20:21)
[2019-07-17] MEDS: NEOMYCIN/POLYMYXIN/HC OTIC SUSPENSION 10ML BOTTLE. AU SCH ×4 (08:03→20:21)
[2019-07-17] MEDS: CHOLECALCIFEROL (VITAMIN D3) 1,000 UNIT TABLET PO SCH (08:03)
[2019-07-17] MEDS: VANCOMYCIN 1.75 GM in IV NORMAL SALINE 500ML 500 ML IV SCH (08:44)
[2019-07-17] MEDS ORDERED: ALPRAZolam 0.5 MG TABLET PO PRN (09:00)
--- NOTE | 2019-07-17 09:58 | PN ---
DATE: SUBJECTIVE: An 88-year-old gentleman in with sepsis. 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 His earlobes are markedly swollen, although they were markedly improved this morning with the IV antibiotic therapy that he was using. The patient's white count has come down from 14 down to 8. Platelet count has remained basically stable. The patient's A1c was 6.1, albumin low like severe to 2.5. In any case, the patient is resting fairly comfortably, making fairly good progress overall. The patient is alert and oriented, although he cannot hear. We were looking for new techniques to help him with his hearing. OBJECTIVE: VITAL SIGNS: Blood pressure 145/94, respirations 16, pulse 52, and afebrile. GENERAL: The patient is alert and oriented. The earlobes are still swollen. Ear canal is still swollen, but markedly improved. HEENT: The patient's mouth and throat were normal. NECK: Supple. LUNGS: Clear. CARDIOVASCULAR: Regular sinus rhythm. ABDOMEN: Protuberant, soft, and nontender. IMPRESSION: Therefore, malignant external otitis media, sinusitis, systemic inflammatory response syndrome, type 2 diabetes, hypertension essential, and morbid obesity. PLAN: Continue to monitor the patient accordingly and will continue with IV antibiotic therapy, may be placed on Skilled Unit as well. He also has severe protein malnutrition. WILLIAM SEVERINO MD DR: JORGITO/dalia JOB#: [id number] / [id number]
[2019-07-17] MEDS: ATORVASTATIN CALCIUM 20 MG TABLET PO SCH (20:21)
[2019-07-17] MEDS: ZOLPIDEM 5 MG TABLET. PO PRN (20:22)
[2019-07-18 05:05] VITALS: BP 159/66
[2019-07-18] MEDS: PIPERACILLIN/TAZOBACTAM 2.25 GM in IV NORMAL SALINE 50ML 50 ML IV SCH ×2 (05:33→12:44)
[2019-07-18 06:27] LABS: BASO % 0 % (0-3); EOS # 0.9 x10^3/uL (0.0-0.7); EOS % 12 % (0-3); HEMATOCRIT 35.2 % (39.0-53.0); HEMOGLOBIN 11.4 g/dL (13.0-17.5); LYMPH # 2.1 x10^3/uL (1.0-4.8); LYMPH % 27 % (24-48); MEAN CORPUSCULAR HEMOGLOBIN 30 pg (25-35); MEAN CORPUSCULAR HGB CONC 33 g/dL (31-37); MEAN CORPUSCULAR VOLUME 93 fL (79-100); MONO # 0.5 x10^3/uL (0.0-1.1); MONO % 6 % (0-9); NEUT # 4.2 x10^3uL (1.8-7.7); NEUT % 55 % (31-73); PLATELET COUNT 160 x10^3/uL (140-400); RED BLOOD COUNT 3.77 x10^6/uL (4.30-5.70); RED CELL DISTRIBUTION WIDTH 13.6 % (11.5-14.5); WHITE BLOOD COUNT 7.7 x10^3/uL (4.0-11.0)
[2019-07-18 06:43] LABS: ALBUMIN 2.8 g/dL (3.4-5.0); ALBUMIN/GLOBULIN RATIO 0.7 (1.0-1.7); CALCIUM 8.5 mg/dL (8.5-10.1); CREATININE 2.2 mg/dL (0.7-1.3); GFR 28.5; POTASSIUM 4.6 mmol/L (3.5-5.1); TOTAL BILIRUBIN 0.2 mg/dL (0.2-1.0)
[2019-07-18 08:00] VITALS: BP 160/61
[2019-07-18] MEDS ORDERED: CARVEDILOL 3.125 MG TABLET PO SCH (08:00)
[2019-07-18] MEDS: DOCUSATE SODIUM 100 MG CAPSULE PO SCH (08:30)
[2019-07-18] MEDS: ASPIRIN 81 MG TAB.CHEW PO SCH (08:32)
[2019-07-18] MEDS: NEOMYCIN/POLYMYXIN/HC OTIC SUSPENSION 10ML BOTTLE. AU SCH ×2 (08:32→12:45)
[2019-07-18] MEDS: LOSARTAN 50 MG TABLET. PO SCH (08:32)
[2019-07-18] MEDS: CHOLECALCIFEROL (VITAMIN D3) 1,000 UNIT TABLET PO SCH (08:32)
[2019-07-18] MEDS: amLODIPine BESYLATE 10 MG TABLET PO SCH (08:32)
[2019-07-18] MEDS: LACTOBACILLUS RHAMNOSUS GG 1 CAPSULE. PO SCH (08:32)
[2019-07-18 09:22] LABS: VANC TR 15.9 mcg/mL (10.0-20.0)
[2019-07-18] MEDS ORDERED: CARV6.25 PO (09:41)
[2019-07-18] MEDS ORDERED: LEVO500T59 PO (09:41)
[2019-07-18] MEDS ORDERED: CIPR7.5D EACH EAR (09:41)
[2019-07-18] MEDS: VANCOMYCIN 1.75 GM in IV NORMAL SALINE 500ML 500 ML IV SCH (09:45)
[2019-07-18 12:00] VITALS: BP 129/42
== END 2019-07-18 14:05 | disposition home or self-care (01) | DRG 871 ==
LOC: ER 11:18 → ICU 14:22
PROVIDERS: ADMIT Family Medicine; ATTEND Family Medicine
DX: A41.9 Sepsis, unspecified organism (principal); E43 Unspecified severe protein-calorie malnutrition; H60.90 Unspecified otitis externa, unspecified ear; F32.9 Major depressive disorder, single episode, unspecified; I25.10 Atherosclerotic heart disease of native coronary artery without angina pectoris; N40.1 Benign prostatic hyperplasia with lower urinary tract symptoms; H91.92 Unspecified hearing loss, left ear; B96.5 Pseudomonas (aeruginosa) (mallei) (pseudomallei) as the cause of diseases classified elsewhere; E66.01 Morbid (severe) obesity due to excess calories; E11.65 Type 2 diabetes mellitus with hyperglycemia; I12.9 Hypertensive chronic kidney disease with stage 1 through stage 4 chronic kidney disease, or unspecified chronic kidney disease; E11.22 Type 2 diabetes mellitus with diabetic chronic kidney disease; N18.3 Chronic kidney disease, stage 3 (moderate); J32.0 Chronic maxillary sinusitis; E78.00 Pure hypercholesterolemia, unspecified; Z68.36 Body mass index [BMI] 36.0-36.9, adult; Z95.5 Presence of coronary angioplasty implant and graft; Z90.49 Acquired absence of other specified parts of digestive tract; Z88.5 Allergy status to narcotic agent; Z85.048 Personal history of other malignant neoplasm of rectum, rectosigmoid junction, and anus; Z87.891 Personal history of nicotine dependence; Z86.73 Personal history of transient ischemic attack (TIA), and cerebral infarction without residual deficits
CPT/HCPCS: 36415; 70450; 71045; 80048; 80053; 80202; 81001; 82553; 82947; 83036; 83605; 83880; 84145; 84484; 85025; 85610; 85730; 87040; 87070; 87186; 87804; 93005; 96365; 96375; 99291; J1956; J2405; J2543; J3370; J7040; J7030

== ENCOUNTER → 2020-12-17 | Outpatient (CLI) | payer MEDICARE, OTHER ==
[~2020-12-17] MED LIST changes: +AMLO-186 PO; +AMLO-187 PO; -AMLO10TA8 PO; -AMLO5TAB10 PO; -CETI10TA24 PO; +CETI10TA74 PO; +CIPR7.5D EACH EAR; +LEVO500T59 PO; +LOSA100T2 PO; -MISO100T4 PO; +MISO100T7 PO
--- NOTE | 2020-12-17 08:53 | RAD ---
EXAM: Head CT without contrast. HISTORY: Fall. Pain. TECHNIQUE: Computed tomographic images of the head were obtained without contrast. *One or more of the following individualized dose reduction techniques were utilized for this examina tion: 1. Automated exposure control. 2. Adjustment of the mA and/or kV according to patient size. 3. Use of iterative reconstruction technique. COMPARISON: 07/16/2019. FINDINGS: There is no acute or subacute extra-axial or intraparenchymal hemorrhage. There is no mass effect or midline shift. There is no hydrocephalus. There are areas of decreased attenuation within the cerebral white matter, nonspecific and likely rel ated to chronic small vessel disease. There is cerebral volume loss. There are few tiny calcification s along the left cerebral cortex. The visualized portions of the orbits, paranasal sinuses and mastoid air cells are unremarkable. No s uspicious calvarial lesion is seen. IMPRESSION: 1. No acute intracranial finding. 2. Bilateral cerebral white matter changes, likely due to chronic small vessel disease in a patient o f this age. Electronically signed by: Seble Chairez MD (12/17/2020 8:51 AM) [id number]
== END ==
LOC: CT 08:07
PROVIDERS: ATTEND Family Medicine
DX: S09.90XA Unspecified injury of head, initial encounter (principal); G93.89 Other specified disorders of brain; F41.1 Generalized anxiety disorder; W01.198A Fall on same level from slipping, tripping and stumbling with subsequent striking against other object, initial encounter; Y93.89 Activity, other specified; Y92.89 Other specified places as the place of occurrence of the external cause; Y99.8 Other external cause status
CPT/HCPCS: 70450